=== PATIENT | male | born 1930 | race Two or more races ===

== ENCOUNTER 2016-08-11 07:29 | Inpatient (IN) | payer MEDICARE, OTHER ==
[~2016-08-11] VITALS: Ht 170.2 cm; Wt 81.2 kg
[~2016-08-11 07:29] MED LIST: AMBIEN10 MG ORAL; ASPIRIN81 MG ORAL; BACITRACIN3.5 GM OP; CEPHALEXIN500 MG ORAL; CRESTOR PO; FUROSEMIDE20 M1 ORAL; LOPRESSOR25 M1 ORAL; METOPROLOL TART25 MG ORAL; METRONIDAZOLE500 MG ORAL; NASONEX17 GM NASAL; PROTONIX40 M1 PO; ROCALTROL0.5 MCG ORAL; TERAZOSIN HCL1 MG ORAL; VIT D PO; norvasc PO
[2016-08-11 07:30] VITALS: BP 163/58
[2016-08-11] MEDS ORDERED: Ipratropium 0.02% Inh Soln 2.5ml UD HHN ONE (07:45)
[2016-08-11] MEDS ORDERED: Albuterol ud Inhalation HHN ONE (07:45)
[2016-08-11] MEDS ORDERED: Cefepime 1gm vial ONE (07:50)
[2016-08-11 08:02] LABS: PROTHROMBIN TIME 10.6 SEC (9.30-11.50)
[2016-08-11 08:05] LABS: MAGNESIUM 1.2 mg/dL (1.7-2.5)
[2016-08-11 08:10] LABS: ALANINE AMINOTRANSFERASE 9 U/L (3-41); ALBUMIN/GLOBULIN RATIO 1.2 (1.0-2.7); ANION GAP 16 (5-15); ASPARTATE AMINO TRANSFERASE 18 U/L (5-40); CALCIUM 7.2 mg/dL (8.6-10.2); CARBON DIOXIDE 21 mEQ/L (20-30); CHLORIDE 106 mEQ/L (98-107); CREATININE 5.4 mg/dL (0.7-1.2); HEMOLYSIS 9; SODIUM 143 mEQ/L (135-145); TOTAL PROTEIN 6.2 g/dL (6.6-8.7)
[2016-08-11 08:11] LABS: TROPONIN I < 0.30 ng/mL (<=0.30)
[2016-08-11 08:12] LABS: BASOPHILS % (AUTO) 1.2 % (0.0-2.0); EOSINOPHILS % (AUTO) 0.9 % (0.0-3.0); LYMPHOCYTES % (AUTO) 26.7 % (20.0-45.0); MEAN CORPUSCULAR HEMOGLOBIN 30.4 PG (27.0-31.0); MEAN CORPUSCULAR HGB CONC 30.1 G/DL (32.0-36.0); MEAN CORPUSCULAR VOLUME 101 FL (80-99); MEAN PLATELET VOLUME 8.1 FL (6.5-10.1); MONOCYTES % (AUTO) 10.5 % (1.0-10.0); NEUTROPHILS % (AUTO) 60.7 % (45.0-75.0); PLATELET COUNT 163 K/UL (150-450); RED BLOOD COUNT 2.98 M/UL (4.70-6.10); WHITE BLOOD COUNT 5.6 K/UL (4.8-10.8)
[2016-08-11 08:20] LABS: CKMB 1.7 ng/mL (< 6.7)
[2016-08-11 08:34] LABS: APPEARANCE,URINE CLEAR; KETONES,URINE NEGATIVE (NEGATIVE); LEUKOCYTE ESTERASE ,URINE NEGATIVE (NEGATIVE); NITRITE,URINE NEGATIVE (NEGATIVE); PH,URINE 5 (4.5-8.0); PROTEIN,URINE 3+ (NEGATIVE); UROBILINOGEN,URINE NORMAL MG/DL (0.0-1.0)
[2016-08-11] MEDS ORDERED: AMBIEN10 M1 ORAL (08:40)
[2016-08-11] MEDS ORDERED: PredniSONE 20mg tab ORAL ONE (08:45)
[2016-08-11 08:48] VITALS: BP 158/61
[2016-08-11 08:54] LABS: BACTERIA,URINE OCCASIONAL /HPF; SQUAMOUS EPITHELIAL CELL,UR OCCASIONAL /LPF (NONE/OCC); WBC,URINE 0-2 /HPF (0 - 0)
--- NOTE | 2016-08-11 08:54 | Diagnostic Imaging Report ---
Indications: Shortness of breath Technique: Portable AP chest Findings: Comparison: 04/17/2012 Cardiomegaly, pulmonary vascular redistribution, bilateral interstitial infiltrates, mild right costophrenic angle blunting,. Right upper lobe consolidation and volume loss persist, unchanged. Linear and patchy opacities in the right mid and lower lung persists, decreased. No new abnormality demonstrated. IMPRESSION: Bilateral congestive changes, persistent versus recurrent Superimposed subsegmental atelectasis versus scarring and patchy alveolar opacities right lower lung, decreased. Focal pneumonia not excludable. Persistent appearance of right upper lobe atelectasis, unchanged. However, thoracic CT scan at the time of previous chest radiograph fails to demonstrate corroborating findings. This likely simply represents widening of the right paratracheal soft tissues secondary to enlarged right thyroid lobe and ectatic vasculature both demonstrated on previous CT scan, rendered more prominent by lordotic projection of the image and suboptimal inspiration. Upright PA and lateral chest radiographs with better inspiratory effort and optimal technique recommended for more complete evaluation.
--- NOTE | 2016-08-11 09:20 | Emergency Room Report ---
History of Present Illness General Chief Complaint: Dyspnea/Respdistress Source: Patient Present Illness HPI This patient is accompanied by his . He recently was admitted here to [facility] for an upper GI bleed. He was found to have a peptic ulcer or. He was treated and had stabilized. He is known to have chronic renal disease. He presents today for cough and congestion and generalized weakness. His states that 2 days ago he became congested. She states that he did see his primary care physician and was prescribed codeine. She states that the codeine in combination with the Ambien has also made him weak and forgetful. She states that today he was so weak he could not get up. He does have a history of tobacco use. He continues to smoke one to 2 cigarettes per day. He denies any chest pain or abdominal pain. He denies nausea or vomiting. He was treated for C. difficile colitis as well in the hospital. He did have a bout of diarrhea today. He denies fever or chills. He has no other complaints. Allergies: Coded Allergies: No Known Allergies (Unverified , 04/12/12) Patient History Past Medical History: see triage record, HTN, CAD, COPD, renal disease, other - GI bleed, C.diff colitis Social History: Reports: smoking, Denies: alcohol use, drug use Reviewed Nursing Documentation: PMH: Agreed, PSxH: Agreed Nursing Documentation-PMH Hx Cardiac Problems: No Hx Hypertension: Yes Hx Pacemaker: No Hx Asthma: No Hx COPD: No Hx Diabetes: No Hx Cancer: No Hx Gastrointestinal Problems: No Hx Dialysis: No History Of Psychiatric Problem: No Hx Neurological Problems: No Hx Cerebrovascular Accident: No Hx Seizures: No Review of Systems All Other Systems: negative except mentioned in HPI Physical Exam Vital Signs Date Time Temp Pulse Resp B/P Pulse Ox O2 Delivery O2 Flow Rate FiO2 08/11/16 07:25 98.1 86 18 130/80 95 Nasal Cannula 2.0 08/11/16 07:53 36 Sp02 EP Interpretation: reviewed, abnormal General Appearance: no apparent distress, alert, GCS 15, non-toxic Head: normocephalic, atraumatic Eyes: bilateral eye PERRL, bilateral eye normal inspection ENT: hearing grossly normal, normal pharynx, no angioedema, normal voice Neck: full range of motion, supple/symm/no masses Respiratory: chest non-tender, no respiratory distress, rhonchi, speaking full sentences, wheezing, expiration Cardiovascular #1: regular rate, rhythm, no edema Gastrointestinal: normal bowel sounds, non tender, soft, non-distended, no guarding, no rebound Rectal: deferred Musculoskeletal: back normal, normal range of motion, non-tender Neurologic: alert, oriented x3, responsive, motor strength/tone normal, sensory intact, speech normal Psychiatric: judgement/insight normal, memory normal, mood/affect normal, no suicidal/homicidal ideation Skin: normal color, no rash, warm/dry, well hydrated Medical Decision Making Diagnostic Impression: Primary Impression: Renal failure Additional Impressions: Pneumonia COPD exacerbation Diarrhea Hx of Clostridium difficile infection ER Course This patient presents with several acute medical conditions. He has pneumonia with COPD exacerbation. He was given broad-spectrum antibiotics, breathing treatments and steroids. He was also given aggressive IV fluid resuscitation. He was also found to be in acute renal failure. This could be prerenal given a BUN of 46. He was given IV fluids. Given the patient's age and comorbidities, this patient will be admitted for further treatment of his pneumonia, COPD and further assessment of his renal failure. He is admitted to telemetry. The patient also was found to have bloody diarrhea. His hemoglobin and hematocrit are stable and so I do not suspect an acute upper GI bleed. However, this patient may have recurrence of his C. difficile colitis. A stool C. difficile toxin was sent and is pending. This patient is critically ill. This patient required complex medical decision- making, aggressive intervention, extensive laboratory workup and monitoring. Critical care time: 40 minutes. Labs Test 08/11/16 07:35 08/11/16 08:09 White Blood Count 5.6 K/UL (4.8-10.8) Red Blood Count 2.98 M/UL (4.70-6.10) Hemoglobin 9.1 G/DL (14.2-18.0) Hematocrit 30.2 % (42.0-52.0) Mean Corpuscular Volume 101 FL (80-99) Mean Corpuscular Hemoglobin 30.4 PG (27.0-31.0) Mean Corpuscular Hemoglobin Concent 30.1 G/DL (32.0-36.0) Red Cell Distribution Width 15.0 % (11.6-14.8) Platelet Count 163 K/UL (150-450) Mean Platelet Volume 8.1 FL (6.5-10.1) Neutrophils (%) (Auto) 60.7 % (45.0-75.0) Lymphocytes (%) (Auto) 26.7 % (20.0-45.0) Monocytes (%) (Auto) 10.5 % (1.0-10.0) Eosinophils (%) (Auto) 0.9 % (0.0-3.0) Basophils (%) (Auto) 1.2 % (0.0-2.0) Prothrombin Time 10.6 SEC (9.30-11.50) Prothromb Time International Ratio 1.0 (0.9-1.1) Activated Partial Thromboplast Time 31 SEC (23-33) Sodium Level 143 mEQ/L (135-145) Potassium Level 5.0 mEQ/L (3.4-4.9) Chloride Level 106 mEQ/L (98-107) Carbon Dioxide Level 21 mEQ/L (20-30) Anion Gap 16 (5-15) Blood Urea Nitrogen 46 mg/dL (7-23) Creatinine 5.4 mg/dL (0.7-1.2) Estimat Glomerular Filtration Rate mL/min (>60) Glucose Level 104 mg/dL (74-106) Lactic Acid Level 0.90 mmol/L (0.66-2.22) Calcium Level 7.2 mg/dL (8.6-10.2) Magnesium Level 1.2 mg/dL (1.7-2.5) Total Bilirubin < 0.2 mg/dL (0.0-1.2) Aspartate Amino Transf (AST/SGOT) 18 U/L (5-40) Alanine Aminotransferase (ALT/SGPT) 9 U/L (3-41) Alkaline Phosphatase 63 U/L (40-129) Total Creatine Kinase 112 U/L (38-174) Creatine Kinase MB 1.7 ng/mL (< 6.7) Creatine Kinase MB Relative Index 1.5 Troponin I < 0.30 ng/mL (<=0.30) Total Protein 6.2 g/dL (6.6-8.7) Albumin 3.4 g/dL (3.5-5.2) Globulin 2.8 g/dL Albumin/Globulin Ratio 1.2 (1.0-2.7) Urine Color Pale yellow Urine Appearance Clear Urine pH 5 (4.5-8.0) Urine Specific [place] 1.010 (1.005-1.035) Urine Protein 3+ (NEGATIVE) Urine Glucose (UA) Negative (NEGATIVE) Urine Ketones Negative (NEGATIVE) Urine Occult Blood 2+ (NEGATIVE) Urine Nitrite Negative (NEGATIVE) Urine Bilirubin Negative (NEGATIVE) Urine Urobilinogen Normal MG/DL (0.0-1.0) Urine Leukocyte Esterase Negative (NEGATIVE) Urine RBC 2-4 /HPF (0 - 0) Urine WBC 0-2 /HPF (0 - 0) Urine Squamous Epithelial Cells Occasional /LPF Urine Bacteria Occasional /HPF (NONE) EKG Diagnostic Results Rate: normal Rhythm: NSR ST Segments: no acute changes Other Impression Right bundle-branch block. Unchanged from comparison on 06/08/2016. Rhythm Strip Diag. Results EP Interpretation: yes Rate: 70's Rhythm: NSR, no PVC's, no ectopy Chest X-Ray Diagnostic Results EP Interpretation: No Findings: no pneumothorax, other Number of Views: 1 Other Impression See official report. Many chronic findings. Increase in the right lower lobe opacification. Last Vital Signs Date Time Temp Pulse Resp B/P Pulse Ox O2 Delivery O2 Flow Rate FiO2 08/11/16 08:52 80 36 Nasal Cannula 4.0 36 08/11/16 08:48 98.6 158/61 96 Status: improved Disposition: ADMITTED INPATIENT Condition: Serious Referrals: LULU SHERMAN (PCP) CECE HERNANDEZ D.O. Aug 11, 2016 09:20
[2016-08-11 10:08] LABS: IONIZED CALCIUM 0.96 mmol/L (1.10-1.35)
[2016-08-11] MEDS ORDERED: Ipratropium 0.02% Inh Soln 2.5ml UD HHN SCH (10:45)
[2016-08-11] MEDS ORDERED: Zolpidem 5mg tab ORAL PRN (10:45)
[2016-08-11] MEDS ORDERED: Albuterol ud Inhalation HHN SCH (11:00)
[2016-08-11 11:46] VITALS: BP 137/55
[2016-08-11] MEDS ORDERED: Polysporin Oint 30gm TOPIC PRN ×2 (12:45→15:00)
[2016-08-11] MEDS ORDERED: Bacitracin Oint UD TOPIC ONE (14:00)
[2016-08-11] MEDS ORDERED: Promethazine/Codeine 5ml UD ORAL PRN (15:00)
--- NOTE | 2016-08-11 15:03 | Consultation ---
History of Present Illness General Date patient seen: Aug 11, 2016 Chief Complaint: Dyspnea/Respdistress Referring physician: Power Reason for Consultation: dyspnea Present Illness HPI 86 year old female with hx of CAD, CHF, CKD, He recently was admitted to [facility] for an upper GI bleed. He presented today for cough and congestion and generalized weakness. His states that 2 days ago he became congested. She states that today he was so weak he could not get up. He does have a history of tobacco use. He continues to smoke one to 2 cigarettes per day. He denies any chest pain or abdominal pain. Patient was diagnosed to have bronchitis and pneumonia and CHF and admitted to telemetry for further work up. Patient is awake and c/o cough and dyspnea for a few days, doesn't recall having any fever or chills. Allergies: Coded Allergies: No Known Allergies (Unverified , 04/12/12) Medication History Scheduled Bacitracin (Bacitracin), 1 APPLIC OP BID Calcitriol (Calcitriol), 0.5 MCG ORAL DAILY Metoprolol Tartrate (Metoprolol Tartrate), 25 MG ORAL EVERY 12 HOURS Metoprolol Tartrate* (Metoprolol Tartrate*), 25 MG ORAL EVERY 12 HOURS, ( Reported) Metronidazole* (Flagyl*), 500 MG ORAL EVERY 8 HOURS Mometasone Furoate (Nasonex), 2 SPRAYS NASAL DAILY, (Reported) Pantoprazole* (Protonix*), 40 MG PO EVERY 12 HOURS [Crestor], TAB PO DAILY, (Reported) Scheduled PRN Zolpidem Tartrate* (Ambien*), 10 MG ORAL HS PRN for Insomnia, (Reported) Patient History Healthcare decision maker Resuscitation status Full Code Advanced Directive on File Past Medical/Surgical History Past Medical/Surgical History: (1) C. difficile colitis (2) CKD (chronic kidney disease) (3) Gastric ulcer (4) COPD exacerbation Review of Systems Respiratory: Reports: cough, shortness of breath All Other Systems: negative except mentioned in HPI Physical Exam General Appearance: WD/WN, no apparent distress Lines, tubes and drains: peripheral, central line HEENT: normocephalic, atraumatic Neck: non-tender, normal alignment Respiratory/Chest: chest wall non-tender, lungs clear Cardiovascular/Chest: normal peripheral pulses, normal rate Abdomen: normal bowel sounds, non tender Genitourinary/Rectal: normal genital exam Extremities: normal range of motion Last 24 Hour Vital Signs Date Time Temp Pulse Resp B/P Pulse Ox O2 Delivery O2 Flow Rate FiO2 08/11/16 11:46 98.1 73 22 137/55 93 Nasal Cannula 4.0 08/11/16 11:40 69 20 97 Nasal Cannula 4.0 36 08/11/16 11:30 85 20 93 Nasal Cannula 4.0 36 08/11/16 10:04 75 29 155/48 95 Nasal Cannula 4.0 08/11/16 08:52 80 36 Nasal Cannula 4.0 36 08/11/16 08:48 98.6 80 36 158/61 96 Nasal Cannula 4.0 36 08/11/16 08:11 78 24 100 Nasal Cannula 4.0 36 08/11/16 07:53 81 21 95 Nasal Cannula 4.0 36 08/11/16 07:53 81 21 Nasal Cannula 4.0 36 08/11/16 07:30 98.3 81 22 163/58 99 Nasal Cannula 4.0 08/11/16 07:30 81 22 Nasal Cannula 4.0 08/11/16 07:25 98.1 86 18 130/80 95 Nasal Cannula 2.0 Laboratory Tests Test 08/11/16 07:35 08/11/16 08:09 White Blood Count 5.6 K/UL (4.8-10.8) Red Blood Count 2.98 M/UL (4.70-6.10) L Hemoglobin 9.1 G/DL (14.2-18.0) L Hematocrit 30.2 % (42.0-52.0) L Mean Corpuscular Volume 101 FL (80-99) H Mean Corpuscular Hemoglobin 30.4 PG (27.0-31.0) Mean Corpuscular Hemoglobin Concent 30.1 G/DL (32.0-36.0) L Red Cell Distribution Width 15.0 % (11.6-14.8) H Platelet Count 163 K/UL (150-450) Mean Platelet Volume 8.1 FL (6.5-10.1) Neutrophils (%) (Auto) 60.7 % (45.0-75.0) Lymphocytes (%) (Auto) 26.7 % (20.0-45.0) Monocytes (%) (Auto) 10.5 % (1.0-10.0) H Eosinophils (%) (Auto) 0.9 % (0.0-3.0) Basophils (%) (Auto) 1.2 % (0.0-2.0) Prothrombin Time 10.6 SEC (9.30-11.50) Prothromb Time International Ratio 1.0 (0.9-1.1) Activated Partial Thromboplast Time 31 SEC (23-33) Sodium Level 143 mEQ/L (135-145) Potassium Level 5.0 mEQ/L (3.4-4.9) H Chloride Level 106 mEQ/L (98-107) Carbon Dioxide Level 21 mEQ/L (20-30) Anion Gap 16 (5-15) H Blood Urea Nitrogen 46 mg/dL (7-23) H Creatinine 5.4 mg/dL (0.7-1.2) H Estimat Glomerular Filtration Rate mL/min (>60) Glucose Level 104 mg/dL (74-106) Lactic Acid Level 0.90 mmol/L (0.66-2.22) Calcium Level 7.2 mg/dL (8.6-10.2) L Ionized Calcium (Measured) 0.96 mmol/L (1.10-1.35) L Magnesium Level 1.2 mg/dL (1.7-2.5) L Total Bilirubin < 0.2 mg/dL (0.0-1.2) Aspartate Amino Transf (AST/SGOT) 18 U/L (5-40) Alanine Aminotransferase (ALT/SGPT) 9 U/L (3-41) Alkaline Phosphatase 63 U/L (40-129) Total Creatine Kinase 112 U/L (38-174) Creatine Kinase MB 1.7 ng/mL (< 6.7) Creatine Kinase MB Relative Index 1.5 Troponin I < 0.30 ng/mL (<=0.30) Total Protein 6.2 g/dL (6.6-8.7) L Albumin 3.4 g/dL (3.5-5.2) L Globulin 2.8 g/dL Albumin/Globulin Ratio 1.2 (1.0-2.7) Urine Color Pale yellow Urine Appearance Clear Urine pH 5 (4.5-8.0) Urine Specific [place] 1.010 (1.005-1.035) Urine Protein 3+ (NEGATIVE) H Urine Glucose (UA) Negative (NEGATIVE) Urine Ketones Negative (NEGATIVE) Urine Occult Blood 2+ (NEGATIVE) H Urine Nitrite Negative (NEGATIVE) Urine Bilirubin Negative (NEGATIVE) Urine Urobilinogen Normal MG/DL (0.0-1.0) Urine Leukocyte Esterase Negative (NEGATIVE) Urine RBC 2-4 /HPF (0 - 0) H Urine WBC 0-2 /HPF (0 - 0) Urine Squamous Epithelial Cells Occasional /LPF Urine Bacteria Occasional /HPF (NONE) Microbiology Date/Time Source Procedure Growth Status 08/11/16 08:09 Stool Clostridium difficile Toxin Assay - Final Complete Height (Feet): 5 Height (Inches): 7.00 Weight (Pounds): 179 Medications Current Medications Medications (Trade) Dose Ordered Sig/Bereket Route PRN Reason Start Time Stop Time Status Last Admin Dose Admin Albuterol Sulfate (Proventil) 2.5 mg Q4HRT HHN 08/11/16 11:00 08/16/16 10:59 08/11/16 11:30 Atorvastatin Calcium (Lipitor) 20 mg BEDTIME ORAL 08/11/16 21:00 09/10/16 20:59 Bacitracin/ Polymyxin B Sulfate (Polysporin Oint) 1 applic BIDPRN PRN TOPIC for itchiness 08/11/16 15:00 09/10/16 14:59 Calcitriol (Rocaltrol) 0.5 mcg DAILY ORAL 08/12/16 09:00 09/11/16 08:59 Cefepime HCl/ Dextrose (Maxipime/D5W 50ml) 50 ml @ 100 mls/hr EVERY 12 HOURS IVPB 08/11/16 21:00 08/18/16 20:59 Clonidine HCl (Catapres) 0.1 mg EVERY 8 HOURS PRN ORAL For High Blood Pressure 08/11/16 10:45 09/10/16 10:44 Fluticasone Propionate (Flonase) 1 spray TWICE A DAY NASAL 08/11/16 18:00 09/10/16 17:59 Ipratropium [place] (Atrovent) 500 mcg Q4H HHN 08/11/16 10:45 08/16/16 10:44 08/11/16 11:30 Levofloxacin (Levaquin) 50 ml @ 50 mls/hr DAILY IVPB 08/11/16 10:45 08/18/16 10:44 08/11/16 12:56 Metoprolol Tartrate (Lopressor) 25 mg EVERY 12 HOURS ORAL 08/11/16 21:00 09/10/16 20:59 Pantoprazole 40 mg 40 mg EVERY 12 HOURS ORAL 08/11/16 21:00 09/10/16 20:59 Zolpidem Tartrate (Ambien) 10 mg HSPRN PRN ORAL Insomnia 08/11/16 10:45 09/10/16 10:44 Assessment/Plan Problem List: (1) Pneumonia ICD Codes: J18.9 - Pneumonia, unspecified organism SNOMED: 759911721, 630451026 Qualifiers: (2) COPD exacerbation ICD Codes: J44.1 - Chronic obstructive pulmonary disease with (acute) exacerbation SNOMED: 725942788, 925541463 (3) Hx of Clostridium difficile infection ICD Codes: Z86.19 - Personal history of other infectious and parasitic diseases SNOMED: 017216644 (4) Anemia ICD Codes: D64.9 - Anemia SNOMED: 411474402 Assessment/Plan respiratory treatment IV antibiotics check sputum chest pt diuretics aspiration precaution MAURY CONTI Aug 11, 2016 15:03
[2016-08-11 16:13] VITALS: BP 134/55
--- NOTE | 2016-08-11 16:35 | General Progress Note ---
Assessment/Plan Status: stable Assessment/Plan 1. Pneumonia - cont IV levaquin 250 mg daily. cont. breathing txt 2. COPD - cont breathing txt. Dr raines is following the patient as well. 3. CKD - will consult Dr Gonzalez. 4. H/O GI bleeding - stable now. Stool hemocult negative. 5. H/O Gastric Ulcer - stable. 6. H/o Sarcoidosis Subjective Date patient seen: Aug 11, 2016 Time patient seen: 04:00 Constitutional: Reports: weakness HEENT: Reports: no symptoms Cardiovascular: Reports: no symptoms Respiratory: Reports: cough Gastrointestinal/Abdominal: Reports: no symptoms Genitourinary: Reports: no symptoms Neurologic/Psychiatric: Reports: no symptoms Endocrine: Reports: no symptoms Hematologic/Lymphatic: Reports: no symptoms Allergies: Coded Allergies: No Known Allergies (Unverified , 04/12/12) Subjective Pt c/o coughing and slightly lethargic today. he took phenergan with codeine and sleeping pill yesterday and he fell at home. He then was brought into ER at [place]. Now, he has slight coughing. Objective Last 24 Hour Vital Signs Date Time Temp Pulse Resp B/P Pulse Ox O2 Delivery O2 Flow Rate FiO2 08/11/16 16:13 98.4 67 18 134/55 95 Nasal Cannula 4.0 08/11/16 11:46 98.1 73 22 137/55 93 Nasal Cannula 4.0 08/11/16 11:40 69 20 97 Nasal Cannula 4.0 36 08/11/16 11:30 85 20 93 Nasal Cannula 4.0 36 08/11/16 10:04 75 29 155/48 95 Nasal Cannula 4.0 08/11/16 08:52 80 36 Nasal Cannula 4.0 36 08/11/16 08:48 98.6 80 36 158/61 96 Nasal Cannula 4.0 36 08/11/16 08:11 78 24 100 Nasal Cannula 4.0 36 08/11/16 07:53 81 21 95 Nasal Cannula 4.0 36 08/11/16 07:53 81 21 Nasal Cannula 4.0 36 08/11/16 07:30 98.3 81 22 163/58 99 Nasal Cannula 4.0 08/11/16 07:30 81 22 Nasal Cannula 4.0 08/11/16 07:25 98.1 86 18 130/80 95 Nasal Cannula 2.0 Laboratory Tests 08/11/16 07:35: White Blood Count 5.6, Red Blood Count 2.98L, Hemoglobin 9.1L, Hematocrit 30.2L , Mean Corpuscular Volume 101H, Mean Corpuscular Hemoglobin 30.4, Mean Corpuscular Hemoglobin Concent 30.1L, Red Cell Distribution Width 15.0H, Platelet Count 163, Mean Platelet Volume 8.1, Neutrophils (%) (Auto) 60.7, Lymphocytes (%) (Auto) 26.7, Monocytes (%) (Auto) 10.5H, Eosinophils (%) (Auto) 0.9, Basophils (%) (Auto) 1.2, Prothrombin Time 10.6, Prothromb Time International Ratio 1.0, Activated Partial Thromboplast Time 31, Sodium Level 143, Potassium Level 5.0H, Chloride Level 106, Carbon Dioxide Level 21, Anion Gap 16H, Blood Urea Nitrogen 46H, Creatinine 5.4H, Estimat Glomerular Filtration Rate , Glucose Level 104, Lactic Acid Level 0.90, Calcium Level 7.2L , Ionized Calcium (Measured) 0.96L, Magnesium Level 1.2L, Total Bilirubin < 0.2 , Aspartate Amino Transf (AST/SGOT) 18, Alanine Aminotransferase (ALT/SGPT) 9, Alkaline Phosphatase 63, Total Creatine Kinase 112, Creatine Kinase MB 1.7, Creatine Kinase MB Relative Index 1.5, Troponin I < 0.30, Total Protein 6.2L, Albumin 3.4L, Globulin 2.8, Albumin/Globulin Ratio 1.2 08/11/16 08:09: Urine Color Pale yellow, Urine Appearance Clear, Urine pH 5, Urine Specific [place] 1.010, Urine Protein 3+H, Urine Glucose (UA) Negative, Urine Ketones Negative, Urine Occult Blood 2+H, Urine Nitrite Negative, Urine Bilirubin Negative, Urine Urobilinogen Normal, Urine Leukocyte Esterase Negative, Urine RBC 2-4H, Urine WBC 0-2, Urine Squamous Epithelial Cells Occasional, Urine Bacteria Occasional Height (Feet): 5 Height (Inches): 7.00 Weight (Pounds): 179 General Appearance: no apparent distress, lethargic EENT: normal ENT inspection Neck: non-tender, normal alignment, supple Cardiovascular: normal rate, regular rhythm Respiratory/Chest: chest wall non-tender, lungs clear, normal breath sounds Abdomen: normal bowel sounds, non tender, soft, no organomegaly Extremities: normal range of motion, non-tender Edema: no edema noted Arm (L), no edema noted Arm (R), no edema noted Leg (L), no edema noted Leg (R), no edema noted Pedal (L), no edema noted Pedal (R), no edema noted Generalized Neurologic: no motor/sensory deficits, alert, responsive Skin: warm/dry Lymphatic: normal anterior cervical (L), normal anterior cervical (R), normal axillary (L), normal axillary (R), normal inguinal (L), normal inguinal (R), normal other, normal posterior cervical (L), normal posterior cervical (R), normal submandibular (L), normal submandibular (R), normal supraclavicular (L), normal supraclavicular (R) LULU SHERMAN Aug 11, 2016 16:35
[2016-08-11] MEDS: Flonase Nasal Inhaler 16gm NASAL SCH (18:00)
[2016-08-11] MEDS: DuoNeb 0.5-3(2.5)mg/3ml neb HHN SCH (19:23)
[2016-08-11 20:00] VITALS: BP 143/62
[2016-08-11] MEDS: Atorvastatin 20mg tab ORAL SCH (20:23)
[2016-08-11] MEDS: Theophylline ER 100mg ORAL SCH (20:23)
[2016-08-11] MEDS: Metoprolol 25mg tab ORAL SCH (20:24)
[2016-08-12 00:50] VITALS: BP 129/50
[2016-08-12] MEDS: DuoNeb 0.5-3(2.5)mg/3ml neb HHN SCH ×4 (01:25→19:15)
--- NOTE | 2016-08-12 02:47 | History and Physical Report ---
DATE OF ADMISSION: 08/11/2016 CHIEF COMPLAINT: Cough and shortness of breath. HISTORY OF PRESENT ILLNESS: This is an 86-year-old male with history of coronary artery disease, CHF, and chronic kidney disease, who was brought in by his for complaint of shortness of breath, drowsiness, and increased congestion for the past two days. The patient fell this morning at home according to his and then she decided to bring him into the hospital for evaluation. The patient received oral antibiotic, Augmentin as an outpatient for acute bronchitis by another doctor. However, he did not respond well to the treatment and decided to come to the hospital. The patient denies any fever or chills, but has slight shortness of breath. No nausea or vomiting. No diarrhea. No abdominal pain noted. PAST MEDICAL HISTORY: Includes history of GI bleed, history of C. diff colitis, chronic kidney disease, and gastric ulcer, history of Sarcoidosis ALLERGIES: No known drug allergies. MEDICATIONS: The patient is taking metoprolol tartrate 25 mg q.12 h., Protonix 40 mg q.12 h., calcitriol 0.5 mcg daily, and Crestor 5 mg one at bedtime plus Ambien 10 mg at bedtime. SOCIAL HISTORY: History of smoking for over 30 years. The patient is drinking heavily alcohol, however, quit alcohol intake for the past seven months. No history of IV drug abuse. FAMILY HISTORY: Noncontributory. REVIEW OF SYSTEMS: Everything is negative except for history of present illness. PHYSICAL EXAMINATION: VITAL SIGNS: Temperature is 98.6 degrees, pulse 80, respirations 24 to 26, blood pressure 168/61, and pulse oximetry 96% on three liters nasal cannula. GENERAL: No acute distress. The patient appears his stated age. HEENT: Normocephalic and normochromic. Extraocular muscles are intact. Throat is clear. LUNGS: Positive rhonchi bilaterally with congestion. CARDIOVASCULAR: Normal S1 and S2. No murmur. No gallop. Regular rate and rhythm. ABDOMEN: Soft, nontender, and nondistended. Positive bowel sounds. EXTREMITIES: No edema, cyanosis, or clubbing. NEUROLOGIC: No gross motor or sensory deficits. SKIN: No rash. LABORATORY AND DIAGNOSTIC DATA: WBC is 5.6, hemoglobin 9.1, hematocrit 30.2, platelet count 163,000; and neutrophils 60.7. PT is 10.6, INR 1.0, and PTT 31. Sodium is 143, potassium 5, chloride 106, bicarbonate 21, BUN 46, creatinine 5.4, and glucose 104. Lactic acid is 0.9. Calcium is 7.2. Ionized calcium is 0.96. Magnesium is 1.2. AST is 18, ALT 9, and alkaline phosphatase 63. Total creatine kinase is 112. Troponin is less than 0.3. Total protein is 6.2 and albumin 3.4. Chest x-ray shows superimposed subsegmental atelectasis versus scarring and patchy alveolar opacity of the right lower lung that is slightly decreased from prior. Persistent appearance of the right upper lobe and possible widening of the right parenchymal soft tissue, secondary to large . ASSESSMENT AND PLAN: 1. Pneumonia. Continue IV cefepime 1 g b.i.d. q.12 h. 2. Chronic obstructive pulmonary disease. Continue breathing treatment every four hours. 3. Chronic kidney disease - will have Dr hooker see the patient. 4. History of gastrointestinal bleed 5. History of gastric ulcer 6. history of sarcoidosis The patient will be admitted for a minimum of two night stay for the treatment of pneumonia. Bacilio Steve M.D. DR: Aparna JOB#: [id number] CC: SYLVESTER
[2016-08-12 04:19] VITALS: BP 138/59
[2016-08-12 06:10] LABS: MEAN CORPUSCULAR HGB CONC 29.8 G/DL (32.0-36.0); MEAN CORPUSCULAR VOLUME 101 FL (80-99); MEAN PLATELET VOLUME 7.4 FL (6.5-10.1); PLATELET COUNT 127 K/UL (150-450); RED BLOOD COUNT 2.55 M/UL (4.70-6.10); RED CELL DISTRIBUTION WIDTH 15.2 % (11.6-14.8); WHITE BLOOD COUNT 5.9 K/UL (4.8-10.8)
[2016-08-12 06:25] LABS: ANION GAP 14 (5-15); CALCIUM 6.6 mg/dL (8.6-10.2); CARBON DIOXIDE 18 mEQ/L (20-30); CHLORIDE 112 mEQ/L (98-107); CREATININE 5.1 mg/dL (0.7-1.2); HEMOLYSIS 2; POTASSIUM 5.7 mEQ/L (3.4-4.9); SODIUM 144 mEQ/L (135-145)
[2016-08-12 07:51] VITALS: BP 113/49
[2016-08-12] MEDS: Theophylline ER 100mg ORAL SCH ×2 (08:43→21:37)
[2016-08-12] MEDS: Metoprolol 25mg tab ORAL SCH ×2 (08:44→21:37)
[2016-08-12] MEDS: Calcitriol 0.5mcg Cap ORAL SCH (08:44)
[2016-08-12] MEDS: Flonase Nasal Inhaler 16gm NASAL SCH ×2 (10:38→19:22)
[2016-08-12 11:13] LABS: BAND NEUTROPHILS % (MANUAL) 1 % (0-8); LYMPHOCYTES % (MANUAL) 18 % (20-45); NEUTROPHILS % (MANUAL) 71 % (45-75); TOTAL CELLS COUNTED 100
[2016-08-12 11:14] LABS: BASOPHILS % (MANUAL) 0 % (0-2); EOSINOPHILS % (MANUAL) 0 % (0-3); PLATELET ESTIMATE DECREASED; PLATELET MORPHOLOGY NORMAL
[2016-08-12 11:15] LABS: ANISOCYTOSIS 1+
[2016-08-12 11:16] LABS: HYPOCHROMASIA 1+; MACROCYTES 1+
[2016-08-12 11:20] VITALS: BP 133/55
--- NOTE | 2016-08-12 13:11 | Pulmonology Progress Note ---
Assessment/Plan Problems: (1) Pneumonia (2) COPD exacerbation (3) Hx of Clostridium difficile infection (4) Anemia Assessment/Plan improving respiratory treatment IV antibiotics check sputum chest pt diuretics aspiration precaution Lasix IV times one kayexalate renal work up Subjective ROS Limited/Unobtainable: No Interval Events: feeling better, no SOB Constitutional: Reports: no symptoms Allergies: Coded Allergies: No Known Allergies (Unverified , 04/12/12) Objective Last 24 Hour Vital Signs Date Time Temp Pulse Resp B/P Pulse Ox O2 Delivery O2 Flow Rate FiO2 08/12/16 11:20 96.8 64 20 133/55 95 Nasal Cannula 4.0 08/12/16 08:44 60 113/49 08/12/16 08:00 65 08/12/16 07:51 97.0 60 20 113/49 97 Nasal Cannula 4.0 08/12/16 07:00 Nasal Cannula 4.0 36 08/12/16 07:00 67 16 96 Nasal Cannula 4.0 36 08/12/16 07:00 96 Nasal Cannula 4.0 36 08/12/16 07:00 Nasal Cannula 4.0 36 08/12/16 04:19 97.3 67 20 138/59 96 Nasal Cannula 4.0 08/12/16 04:00 64 08/12/16 01:33 60 20 95 Nasal Cannula 4.0 36 08/12/16 01:25 60 20 93 Nasal Cannula 4.0 36 08/12/16 00:50 97.6 65 21 129/50 99 Nasal Cannula 4.0 08/12/16 00:00 58 08/11/16 20:24 70 143/62 08/11/16 20:00 69 08/11/16 20:00 98.4 70 19 143/62 95 Nasal Cannula 4.0 08/11/16 19:31 75 18 96 Nasal Cannula 4.0 36 08/11/16 19:26 94 Nasal Cannula 4.0 36 08/11/16 19:26 Nasal Cannula 4.0 36 08/11/16 19:23 67 18 92 Nasal Cannula 4.0 36 08/11/16 16:13 98.4 67 18 134/55 95 Nasal Cannula 4.0 08/11/16 16:00 65 Intake and Output 08/11/16 08/12/16 19:00 07:00 Intake Total 2720 ml 460 ml Balance 2720 ml 460 ml Intake Oral 220 ml 360 ml IV Total 2500 ml 100 ml # Voids 2 # Bowel Movements 1 General Appearance: WD/WN HEENT: normocephalic, anicteric Respiratory/Chest: chest wall non-tender, lungs clear Cardiovascular: normal peripheral pulses, normal rate Abdomen: normal bowel sounds, soft, non tender Genitourinary: normal external genitalia Extremities: no clubbing Skin: no ulcers 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 Lymphatic: no neck adenopathy Microbiology Date/Time Source Procedure Growth Status 08/11/16 20:30 Sputum Gram Stain - Final Resulted 08/11/16 20:30 Sputum Sputum Culture Pending Resulted 08/11/16 08:09 Stool Clostridium difficile Toxin Assay - Final Complete Laboratory Tests 08/12/16 04:45: White Blood Count 5.9, Red Blood Count 2.55L, Hemoglobin 7.7L, Hematocrit 25.7L , Mean Corpuscular Volume 101H, Mean Corpuscular Hemoglobin 30.0, Mean Corpuscular Hemoglobin Concent 29.8L, Red Cell Distribution Width 15.2H, Platelet Count 127L, Mean Platelet Volume 7.4, Neutrophils (%) (Auto) , Lymphocytes (%) (Auto) , Monocytes (%) (Auto) , Eosinophils (%) (Auto) , Basophils (%) (Auto) , Differential Total Cells Counted 100, Neutrophils % ( Manual) 71, Lymphocytes % (Manual) 18L, Monocytes % (Manual) 10, Eosinophils % ( Manual) 0, Basophils % (Manual) 0, Band Neutrophils 1, Platelet Estimate DecreasedL, Platelet Morphology Normal, Hypochromasia 1+, Anisocytosis 1+, Macrocytosis 1+, Sodium Level 144, Potassium Level 5.7H, Chloride Level 112H, Carbon Dioxide Level 18L, Anion Gap 14, Blood Urea Nitrogen 49H, Creatinine 5.1H , Estimat Glomerular Filtration Rate , Glucose Level 136H, Calcium Level 6.6L Current Medications Medications (Trade) Dose Ordered Sig/Bereket Route PRN Reason Start Time Stop Time Status Last Admin Dose Admin Albuterol/ Ipratropium (DuoNeb 0.5-3(2.5)mg/3ml) 3 ml Q6HRT HHN 08/11/16 19:00 08/16/16 18:59 08/12/16 10:21 Atorvastatin Calcium (Lipitor) 20 mg BEDTIME ORAL 08/11/16 21:00 09/10/16 20:59 08/11/16 20:23 Bacitracin/ Polymyxin B Sulfate (Polysporin Oint) 1 applic BIDPRN PRN TOPIC for itchiness 08/11/16 15:00 09/10/16 14:59 Calcitriol (Rocaltrol) 0.5 mcg DAILY ORAL 08/12/16 09:00 09/11/16 08:59 08/12/16 08:44 Cefepime HCl/ Dextrose (Maxipime/D5W 50ml) 50 ml @ 100 mls/hr Q24H IVPB 08/12/16 21:00 08/19/16 20:59 Clonidine HCl (Catapres) 0.1 mg EVERY 8 HOURS PRN ORAL For High Blood Pressure 08/11/16 10:45 09/10/16 10:44 Fluticasone Propionate (Flonase) 1 spray TWICE A DAY NASAL 08/11/16 18:00 09/10/16 17:59 08/12/16 10:38 Levofloxacin (Levaquin) 50 ml @ 50 mls/hr DAILY IVPB 08/11/16 10:45 08/18/16 10:44 08/12/16 08:46 Metoprolol Tartrate (Lopressor) 25 mg EVERY 12 HOURS ORAL 08/11/16 21:00 09/10/16 20:59 08/12/16 08:44 Pantoprazole (Protonix) 40 mg EVERY 12 HOURS ORAL 08/11/16 21:00 09/10/16 20:59 08/12/16 08:43 Theophylline 100 mg 100 mg EVERY 12 HOURS ORAL 08/11/16 21:00 09/10/16 20:59 08/12/16 08:43 Zolpidem Tartrate (Ambien) 10 mg HSPRN PRN ORAL Insomnia 08/11/16 10:45 09/10/16 10:44 MAURY CONTI Aug 12, 2016 13:11
[2016-08-12] MEDS ORDERED: Sodium Polystyrene Sulfonate 15gm Powder ORAL ONE (13:40)
[2016-08-12 14:10] LABS: PATH BLOOD SMEAR/OMC SENT TO PATHOLOGIST
[2016-08-12 15:01] LABS: ERYTHROCYTE SEDIMENTATION RATE 60 MM/HR (0-30)
--- NOTE | 2016-08-12 15:03 | Consultation ---
Consult Note Assessment/Plan Renal consult dictated # [id number] CHRISTINA DELUNA Aug 12, 2016 15:03
[2016-08-12] MEDS ORDERED: Tubing IV Secondary IV ONE (15:17)
[2016-08-12] MEDS ORDERED: NS 275ml ONE (15:17)
[2016-08-12 15:23] LABS: ALANINE AMINOTRANSFERASE 7 U/L (3-41); ALBUMIN/GLOBULIN RATIO 1.1 (1.0-2.7); ANION GAP 19 (5-15); ASPARTATE AMINO TRANSFERASE 15 U/L (5-40); CARBON DIOXIDE 16 mEQ/L (20-30); CHLORIDE 107 mEQ/L (98-107); CREATININE 5.2 mg/dL (0.7-1.2); HEMOLYSIS 4; MAGNESIUM 1.3 mg/dL (1.7-2.5); POTASSIUM 5.5 mEQ/L (3.4-4.9); SODIUM 142 mEQ/L (135-145); TOTAL PROTEIN 5.2 g/dL (6.6-8.7); URIC ACID 5.2 mg/dL (3.0-7.5)
[2016-08-12 15:29] LABS: CORTISOL 11.1 ug/dL; FREE T3 1.3 pg/mL (2.3-4.2); THYROID STIMULATING HORMONE 0.695 uIU/mL (0.300-4.500)
[2016-08-12 16:00] VITALS: BP 147/56
[2016-08-12 16:03] LABS: HEMOLYSIS 25; IRON 15 ug/dL (59-158); LACTATE DEHYDROGENASE 263 U/L (135-230); TOTAL IRON BINDING CAPACITY 193 ug/dL (250-400)
--- NOTE | 2016-08-12 16:21 | General Progress Note ---
Assessment/Plan Status: stable Assessment/Plan 1. Pneumonia - improved. cont IV cefepime 1 gm q 12 hrs. cont. breathing txt. 2. COPD - cont breathing txt. Dr raines is following the patient as well. 3. CKD - Dr Gonzalez is following the patient 4. Hyperkalemia - katexakate will be started. 5. H/O GI bleeding - stable now. Stool hemocult negative. 6. H/O Gastric Ulcer - stable. 7. H/o Sarcoidosis 8. Anemia - monitor H/H, may need procrit. will discuss with Dr Gonzalez. Subjective Date patient seen: Aug 12, 2016 Time patient seen: 09:00 Constitutional: Reports: weakness HEENT: Reports: no symptoms Cardiovascular: Reports: no symptoms Respiratory: Reports: cough Gastrointestinal/Abdominal: Reports: no symptoms Genitourinary: Reports: no symptoms Neurologic/Psychiatric: Reports: no symptoms Endocrine: Reports: no symptoms Hematologic/Lymphatic: Reports: no symptoms Allergies: Coded Allergies: No Known Allergies (Unverified , 04/12/12) Subjective Pt's coughing has improved. He is doing better today. His H/H has decreased but His stool hemocult has been negative x one. Afebrile. No sob or chest pain. no Nausea or vomiting. Objective Last 24 Hour Vital Signs Date Time Temp Pulse Resp B/P Pulse Ox O2 Delivery O2 Flow Rate FiO2 08/12/16 13:44 63 18 96 Nasal Cannula 4.0 36 08/12/16 13:33 36 08/12/16 13:33 64 17 95 Nasal Cannula 4.0 36 08/12/16 11:20 96.8 64 20 133/55 95 Nasal Cannula 4.0 08/12/16 08:44 60 113/49 08/12/16 08:00 65 08/12/16 07:51 97.0 60 20 113/49 97 Nasal Cannula 4.0 08/12/16 07:00 Nasal Cannula 4.0 36 08/12/16 07:00 67 16 96 Nasal Cannula 4.0 36 08/12/16 07:00 96 Nasal Cannula 4.0 36 08/12/16 07:00 Nasal Cannula 4.0 36 08/12/16 04:19 97.3 67 20 138/59 96 Nasal Cannula 4.0 08/12/16 04:00 64 08/12/16 01:33 60 20 95 Nasal Cannula 4.0 36 08/12/16 01:25 60 20 93 Nasal Cannula 4.0 36 08/12/16 00:50 97.6 65 21 129/50 99 Nasal Cannula 4.0 08/12/16 00:00 58 08/11/16 20:24 70 143/62 08/11/16 20:00 69 08/11/16 20:00 98.4 70 19 143/62 95 Nasal Cannula 4.0 08/11/16 19:31 75 18 96 Nasal Cannula 4.0 36 08/11/16 19:26 94 Nasal Cannula 4.0 36 08/11/16 19:26 Nasal Cannula 4.0 36 08/11/16 19:23 67 18 92 Nasal Cannula 4.0 36 08/11/16 16:13 98.4 67 18 134/55 95 Nasal Cannula 4.0 Intake and Output 08/11/16 08/12/16 19:00 07:00 Intake Total 2720 ml 460 ml Balance 2720 ml 460 ml Intake Oral 220 ml 360 ml IV Total 2500 ml 100 ml # Voids 2 # Bowel Movements 1 Laboratory Tests 08/12/16 04:45: White Blood Count 5.9, Red Blood Count 2.55L, Hemoglobin 7.7L, Hematocrit 25.7L , Mean Corpuscular Volume 101H, Mean Corpuscular Hemoglobin 30.0, Mean Corpuscular Hemoglobin Concent 29.8L, Red Cell Distribution Width 15.2H, Platelet Count 127L, Mean Platelet Volume 7.4, Neutrophils (%) (Auto) , Lymphocytes (%) (Auto) , Monocytes (%) (Auto) , Eosinophils (%) (Auto) , Basophils (%) (Auto) , Differential Total Cells Counted 100, Neutrophils % ( Manual) 71, Lymphocytes % (Manual) 18L, Monocytes % (Manual) 10, Eosinophils % ( Manual) 0, Basophils % (Manual) 0, Band Neutrophils 1, Platelet Estimate DecreasedL, Platelet Morphology Normal, Hypochromasia 1+, Anisocytosis 1+, Macrocytosis 1+, Sodium Level 144, Potassium Level 5.7H, Chloride Level 112H, Carbon Dioxide Level 18L, Anion Gap 14, Blood Urea Nitrogen 49H, Creatinine 5.1H , Estimat Glomerular Filtration Rate , Glucose Level 136H, Calcium Level 6.6L 08/12/16 05:30: Erythrocyte Sedimentation Rate 60H, Reticulocyte Count 1.0 08/12/16 13:30: Sodium Level 142, Potassium Level 5.5H, Chloride Level 107, Carbon Dioxide Level 16L, Anion Gap 19H, Blood Urea Nitrogen 49H, Creatinine 5.2H, Estimat Glomerular Filtration Rate , Glucose Level 129H, Calcium Level 7.0L, Osmolality [Pending], Uric Acid 5.2, Magnesium Level 1.3L, Iron Level 15L, Total Iron Binding Capacity 193L, Percent Iron Saturation 8L, Unsaturated Iron Binding 178 , Total Bilirubin < 0.2, Aspartate Amino Transf (AST/SGOT) 15, Alanine Aminotransferase (ALT/SGPT) 7, Alkaline Phosphatase 49, Lactate Dehydrogenase 263H, Total Creatine Kinase 151, Total Protein 5.2L, Albumin 2.8L, Globulin 2.4 , Albumin/Globulin Ratio 1.1, Carcinoembryonic Antigen 8.4H, Vitamin B12 Level 655, Folate [Pending], Thyroid Stimulating Hormone (TSH) 0.695, Free Thyroxine 0.83L, Free Triiodothyronine 1.3L, Cortisol 11.1 08/12/16 15:20: Prothrombin Time [Pending], Prothromb Time International Ratio [Pending], Activated Partial Thromboplast Time [Pending] Height (Feet): 5 Height (Inches): 7.00 Weight (Pounds): 179 General Appearance: no apparent distress - f, alert Neck: non-tender, supple Cardiovascular: normal peripheral pulses, normal rate, regular rhythm Respiratory/Chest: normal breath sounds, no respiratory distress Abdomen: normal bowel sounds, non tender, soft Extremities: non-tender Edema: no edema noted Arm (L), no edema noted Arm (R), no edema noted Leg (L), no edema noted Leg (R), no edema noted Pedal (L), no edema noted Pedal (R), no edema noted Generalized Neurologic: alert, oriented x 3, responsive Skin: warm/dry Lymphatic: normal anterior cervical (L), normal anterior cervical (R), normal axillary (L), normal axillary (R), normal inguinal (L), normal inguinal (R), normal other, normal posterior cervical (L), normal posterior cervical (R), normal submandibular (L), normal submandibular (R), normal supraclavicular (L), normal supraclavicular (R) LULU SHERMAN Aug 12, 2016 16:21
[2016-08-12 16:42] LABS: INR 1.1 (0.9-1.1)
[2016-08-12] MEDS: Tums 500mg ORAL SCH (18:25)
[2016-08-12 20:00] VITALS: BP 162/65
[2016-08-12] MEDS ORDERED: Epogen (for ESRD on dialysis) SUBQ SCH (21:00)
[2016-08-12] MEDS: Atorvastatin 20mg tab ORAL SCH (21:36)
[2016-08-13 00:07] VITALS: BP 158/61
[2016-08-13] MEDS: DuoNeb 0.5-3(2.5)mg/3ml neb HHN SCH ×4 (00:31→19:42)
[2016-08-13 01:41] LABS: APPEARANCE,URINE CLEAR; KETONES,URINE NEGATIVE (NEGATIVE); LEUKOCYTE ESTERASE ,URINE NEGATIVE (NEGATIVE); NITRITE,URINE NEGATIVE (NEGATIVE); PH,URINE 5 (4.5-8.0); PROTEIN,URINE 3+ (NEGATIVE); UROBILINOGEN,URINE NORMAL MG/DL (0.0-1.0)
[2016-08-13 01:54] LABS: RBC,URINE 0-2 /HPF (0 - 0); SQUAMOUS EPITHELIAL CELL,UR FEW /LPF (NONE/OCC); WBC,URINE 0-2 /HPF (0 - 0)
[2016-08-13 01:55] LABS: BACTERIA,URINE FEW /HPF
[2016-08-13] MEDS: Diltiazem 25mg/5ml IV PRN ×2 (02:39→04:06)
[2016-08-13 04:11] VITALS: BP 141/77
[2016-08-13 07:28] LABS: ALANINE AMINOTRANSFERASE 8 U/L (3-41); ALBUMIN/GLOBULIN RATIO 1.2 (1.0-2.7); ANION GAP 19 (5-15); ASPARTATE AMINO TRANSFERASE 17 U/L (5-40); CALCIUM 7.1 mg/dL (8.6-10.2); CARBON DIOXIDE 19 mEQ/L (20-30); CHLORIDE 107 mEQ/L (98-107); CREATININE 5.5 mg/dL (0.7-1.2); HEMOLYSIS 6; MAGNESIUM 1.1 mg/dL (1.7-2.5); PHOSPHORUS 4.8 mg/dL (2.5-4.8); POTASSIUM 4.8 mEQ/L (3.4-4.9); SODIUM 145 mEQ/L (135-145); TOTAL PROTEIN 5.6 g/dL (6.6-8.7)
[2016-08-13 07:36] LABS: BASOPHILS % (AUTO) 0.3 % (0.0-2.0); EOSINOPHILS % (AUTO) 0.1 % (0.0-3.0); MEAN CORPUSCULAR VOLUME 97 FL (80-99); MEAN PLATELET VOLUME 8.4 FL (6.5-10.1); MONOCYTES % (AUTO) 7.6 % (1.0-10.0); NEUTROPHILS % (AUTO) 77.9 % (45.0-75.0); PLATELET COUNT 145 K/UL (150-450); RED BLOOD COUNT 2.87 M/UL (4.70-6.10); RED CELL DISTRIBUTION WIDTH 15.3 % (11.6-14.8); WHITE BLOOD COUNT 5.8 K/UL (4.8-10.8)
[2016-08-13 07:38] LABS: HEMOLYSIS 3; IRON 12 ug/dL (59-158); TOTAL IRON BINDING CAPACITY 188 ug/dL (250-400)
[2016-08-13 08:00] VITALS: BP 120/82
[2016-08-13] MEDS: Tums 500mg ORAL SCH ×3 (09:08→17:09)
[2016-08-13] MEDS: Calcitriol 0.5mcg Cap ORAL SCH (09:08)
[2016-08-13] MEDS: Theophylline ER 100mg ORAL SCH ×2 (09:09→21:05)
[2016-08-13] MEDS: Flonase Nasal Inhaler 16gm NASAL SCH ×2 (09:09→17:09)
[2016-08-13] MEDS: Metoprolol 25mg tab ORAL SCH ×2 (09:13→21:04)
--- NOTE | 2016-08-13 11:22 | Cardiac Electrophysiology PN ---
Subjective Subjective [id number] Objective Last 24 Hour Vital Signs Date Time Temp Pulse Resp B/P Pulse Ox O2 Delivery O2 Flow Rate FiO2 08/13/16 09:56 77 20 98 Nasal Cannula 3.0 32 08/13/16 09:46 32 08/13/16 09:45 75 20 95 Nasal Cannula 3.0 32 08/13/16 09:45 75 Nasal Cannula 3.0 32 08/13/16 09:45 Nasal Cannula 3.0 32 08/13/16 09:13 120 120/82 08/13/16 08:00 98.4 111 18 120/82 97 Room Air 08/13/16 08:00 108 08/13/16 06:12 122 140/77 08/13/16 04:11 99.1 105 22 141/77 94 Nasal Cannula 3.0 08/13/16 04:06 120 140/70 08/13/16 04:00 123 08/13/16 02:39 128 150/70 08/13/16 00:41 112 22 95 Nasal Cannula 4.0 36 08/13/16 00:33 36 08/13/16 00:32 122 24 90 Nasal Cannula 4.0 36 08/13/16 00:07 98.4 72 20 158/61 98 Nasal Cannula 3.0 08/13/16 00:00 121 08/12/16 21:37 69 162/65 08/12/16 20:00 63 08/12/16 20:00 97.8 69 22 162/65 93 Nasal Cannula 3.0 08/12/16 19:20 68 20 98 Nasal Cannula 4.0 36 08/12/16 19:15 Nasal Cannula 4.0 36 08/12/16 19:15 36 08/12/16 19:15 75 22 90 Nasal Cannula 4.0 36 08/12/16 19:15 90 Nasal Cannula 4.0 36 08/12/16 16:00 61 08/12/16 16:00 96.8 59 21 147/56 94 Nasal Cannula 3.0 08/12/16 13:44 63 18 96 Nasal Cannula 4.0 36 08/12/16 13:33 36 08/12/16 13:33 64 17 95 Nasal Cannula 4.0 36 Intake and Output 08/12/16 08/13/16 19:00 07:00 Intake Total 530 ml 540 ml Output Total 1750 ml Balance 530 ml -1210 ml Intake Oral 480 ml 540 ml IV Total 50 ml Output Urine Total 1750 ml # Voids 4 # Bowel Movements 1 Laboratory Tests Test 08/12/16 13:30 08/12/16 15:20 08/12/16 22:00 08/12/16 23:00 Sodium Level 142 mEQ/L (135-145) Potassium Level 5.5 mEQ/L (3.4-4.9) H Chloride Level 107 mEQ/L (98-107) Carbon Dioxide Level 16 mEQ/L (20-30) L Anion Gap 19 (5-15) H Blood Urea Nitrogen 49 mg/dL (7-23) H Creatinine 5.2 mg/dL (0.7-1.2) H Estimat Glomerular Filtration Rate mL/min (>60) Glucose Level 129 mg/dL (74-106) H Osmolality Pending Uric Acid 5.2 mg/dL (3.0-7.5) Calcium Level 7.0 mg/dL (8.6-10.2) L Magnesium Level 1.3 mg/dL (1.7-2.5) L Iron Level 15 ug/dL (59-158) L Total Iron Binding Capacity 193 ug/dL (250-400) L Percent Iron Saturation 8 % (15-50) L Unsaturated Iron Binding 178 ug/dL (112-346) Total Bilirubin < 0.2 mg/dL (0.0-1.2) Aspartate Amino Transf (AST/SGOT) 15 U/L (5-40) Alanine Aminotransferase (ALT/SGPT) 7 U/L (3-41) Alkaline Phosphatase 49 U/L (40-129) Lactate Dehydrogenase 263 U/L (135-230) H Total Creatine Kinase 151 U/L (38-174) Total Protein 5.2 g/dL (6.6-8.7) L Albumin 2.8 g/dL (3.5-5.2) L Globulin 2.4 g/dL Albumin/Globulin Ratio 1.1 (1.0-2.7) Carcinoembryonic Antigen 8.4 ng/mL H Vitamin B12 Level 655 pg/mL (211-946) Folate Pending Thyroid Stimulating Hormone (TSH) 0.695 uIU/mL (0.300-4.500) Free Thyroxine 0.83 ng/dL (0.86-1.85) L Free Triiodothyronine 1.3 pg/mL (2.3-4.2) L Cortisol 11.1 ug/dL Prothrombin Time 11.0 SEC (9.30-11.50) Prothromb Time International Ratio 1.1 (0.9-1.1) Activated Partial Thromboplast Time 27 SEC (23-33) Stool Occult Blood Pending Urine Color Pale yellow Urine Appearance Clear Urine pH 5 (4.5-8.0) Urine Specific [place] 1.010 (1.005-1.035) Urine Protein 3+ (NEGATIVE) H Urine Glucose (UA) Negative (NEGATIVE) Urine Ketones Negative (NEGATIVE) Urine Occult Blood 1+ (NEGATIVE) H Urine Nitrite Negative (NEGATIVE) Urine Bilirubin Negative (NEGATIVE) Urine Urobilinogen Normal MG/DL (0.0-1.0) Urine Leukocyte Esterase Negative (NEGATIVE) Urine RBC 0-2 /HPF (0 - 0) H Urine WBC 0-2 /HPF (0 - 0) Urine Squamous Epithelial Cells Few /LPF (NONE/OCC) Urine Bacteria Few /HPF (NONE) Urine Eosinophils None seen Urine Osmolality Pending Urine Random Sodium 88 mmol/L Urine Random Chloride 77 mmol/L Urine Potassium Timed 22 mmol/L Test 08/13/16 06:00 White Blood Count 5.8 K/UL (4.8-10.8) Red Blood Count 2.87 M/UL (4.70-6.10) L Hemoglobin 8.9 G/DL (14.2-18.0) L Hematocrit 27.9 % (42.0-52.0) L Mean Corpuscular Volume 97 FL (80-99) Mean Corpuscular Hemoglobin 31.0 PG (27.0-31.0) Mean Corpuscular Hemoglobin Concent 32.0 G/DL (32.0-36.0) Red Cell Distribution Width 15.3 % (11.6-14.8) H Platelet Count 145 K/UL (150-450) L Mean Platelet Volume 8.4 FL (6.5-10.1) Neutrophils (%) (Auto) 77.9 % (45.0-75.0) H Lymphocytes (%) (Auto) 14.0 % (20.0-45.0) L Monocytes (%) (Auto) 7.6 % (1.0-10.0) Eosinophils (%) (Auto) 0.1 % (0.0-3.0) Basophils (%) (Auto) 0.3 % (0.0-2.0) Sodium Level 145 mEQ/L (135-145) Potassium Level 4.8 mEQ/L (3.4-4.9) Chloride Level 107 mEQ/L (98-107) Carbon Dioxide Level 19 mEQ/L (20-30) L Anion Gap 19 (5-15) H Blood Urea Nitrogen 55 mg/dL (7-23) H Creatinine 5.5 mg/dL (0.7-1.2) H Estimat Glomerular Filtration Rate mL/min (>60) Glucose Level 96 mg/dL (74-106) Calcium Level 7.1 mg/dL (8.6-10.2) L Phosphorus Level 4.8 mg/dL (2.5-4.8) Magnesium Level 1.1 mg/dL (1.7-2.5) L Iron Level 12 ug/dL (59-158) L Total Iron Binding Capacity 188 ug/dL (250-400) L Percent Iron Saturation 6 % (15-50) L Unsaturated Iron Binding 176 ug/dL (112-346) Total Bilirubin < 0.2 mg/dL (0.0-1.2) Aspartate Amino Transf (AST/SGOT) 17 U/L (5-40) Alanine Aminotransferase (ALT/SGPT) 8 U/L (3-41) Alkaline Phosphatase 54 U/L (40-129) Total Protein 5.6 g/dL (6.6-8.7) L Albumin 3.1 g/dL (3.5-5.2) L Globulin 2.5 g/dL Albumin/Globulin Ratio 1.2 (1.0-2.7) Microbiology Date/Time Source Procedure Growth Status 08/11/16 20:30 Sputum Gram Stain - Final Resulted 08/11/16 20:30 Sputum Sputum Culture - Preliminary NORMAL UPPER RESPIRATORY RAZA AT 24 ... Resulted 08/11/16 08:09 Stool Clostridium difficile Toxin Assay - Final Complete 08/11/16 08:16 Rectum VRE Culture - Final NO VANCOMYCIN RESISTANT ENTEROCOCCUS ... Complete LO HENNESSY Aug 13, 2016 11:22
--- NOTE | 2016-08-13 11:51 | Diagnostic Imaging Report ---
Indication:Elevated Bun and Creatinine. Technique: Grayscale and duplex Doppler imaging of the kidneys performed. Comparison: None Findings: There are multiple cysts present within both kidneys of varying size. There is no hydronephrosis demonstrated. Renal echogenicity is within normal limits bilaterally. The urinary bladder is unremarkable as is the IVC. The right kidney is 10.9 CM and the left 11.4 CM in length. Largest cyst in the right kidney is 2.6 cm. The largest left renal cyst is about 3 cm. Impression: Multiple bilateral renal cysts
[2016-08-13 12:00] VITALS: BP 137/61
--- NOTE | 2016-08-13 12:28 | General Progress Note ---
Assessment/Plan Status: stable Assessment/Plan 1. Pneumonia - improved. cont IV cefepime 1 gm q 24 hrs. cont. breathing txt. 2. COPD - cont breathing txt. Dr raines is following the patient as well. 3. CKD - Dr Gonzalez is following the patient. 4. Hyperkalemia - improved. 5. H/O GI bleeding - stable now. Stool hemocult negative. 6. H/O Gastric Ulcer - stable. 7. H/o Sarcoidosis 8. 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 9. New Onset of A Fib - converted with NSR this morning. Cardiolgy is following the Patient. Subjective Date patient seen: Aug 13, 2016 Time patient seen: 12:00 Constitutional: Reports: no symptoms HEENT: Reports: no symptoms Cardiovascular: Reports: no symptoms Respiratory: Reports: cough Gastrointestinal/Abdominal: Reports: no symptoms Genitourinary: Reports: no symptoms Neurologic/Psychiatric: Reports: no symptoms Endocrine: Reports: no symptoms Hematologic/Lymphatic: Reports: no symptoms Allergies: Coded Allergies: No Known Allergies (Unverified , 04/12/12) Subjective Pt's coughing has improved. He is doing better today. He had episode of A fib last night and this morning converted to NSR. Afebrile. No sob or chest pain. no Nausea or vomiting. Objective Last 24 Hour Vital Signs Date Time Temp Pulse Resp B/P Pulse Ox O2 Delivery O2 Flow Rate FiO2 08/13/16 09:56 77 20 98 Nasal Cannula 3.0 32 08/13/16 09:46 32 08/13/16 09:45 75 20 95 Nasal Cannula 3.0 32 08/13/16 09:45 75 Nasal Cannula 3.0 32 08/13/16 09:45 Nasal Cannula 3.0 32 08/13/16 09:13 120 120/82 08/13/16 08:00 98.4 111 18 120/82 97 Room Air 08/13/16 08:00 108 08/13/16 06:12 122 140/77 08/13/16 04:11 99.1 105 22 141/77 94 Nasal Cannula 3.0 08/13/16 04:06 120 140/70 08/13/16 04:00 123 08/13/16 02:39 128 150/70 08/13/16 00:41 112 22 95 Nasal Cannula 4.0 36 08/13/16 00:33 36 08/13/16 00:32 122 24 90 Nasal Cannula 4.0 36 08/13/16 00:07 98.4 72 20 158/61 98 Nasal Cannula 3.0 08/13/16 00:00 121 08/12/16 21:37 69 162/65 08/12/16 20:00 63 08/12/16 20:00 97.8 69 22 162/65 93 Nasal Cannula 3.0 08/12/16 19:20 68 20 98 Nasal Cannula 4.0 36 08/12/16 19:15 Nasal Cannula 4.0 36 08/12/16 19:15 36 08/12/16 19:15 75 22 90 Nasal Cannula 4.0 36 08/12/16 19:15 90 Nasal Cannula 4.0 36 08/12/16 16:00 61 08/12/16 16:00 96.8 59 21 147/56 94 Nasal Cannula 3.0 08/12/16 13:44 63 18 96 Nasal Cannula 4.0 36 08/12/16 13:33 36 08/12/16 13:33 64 17 95 Nasal Cannula 4.0 36 Intake and Output 08/12/16 08/13/16 19:00 07:00 Intake Total 530 ml 540 ml Output Total 1750 ml Balance 530 ml -1210 ml Intake Oral 480 ml 540 ml IV Total 50 ml Output Urine Total 1750 ml # Voids 4 # Bowel Movements 1 Laboratory Tests 08/12/16 13:30: Sodium Level 142, Potassium Level 5.5H, Chloride Level 107, Carbon Dioxide Level 16L, Anion Gap 19H, Blood Urea Nitrogen 49H, Creatinine 5.2H, Estimat Glomerular Filtration Rate , Glucose Level 129H, Osmolality [Pending], Uric Acid 5.2, Calcium Level 7.0L, Magnesium Level 1.3L, Iron Level 15L, Total Iron Binding Capacity 193L, Percent Iron Saturation 8L, Unsaturated Iron Binding 178 , Total Bilirubin < 0.2, Aspartate Amino Transf (AST/SGOT) 15, Alanine Aminotransferase (ALT/SGPT) 7, Alkaline Phosphatase 49, Lactate Dehydrogenase 263H, Total Creatine Kinase 151, Total Protein 5.2L, Albumin 2.8L, Globulin 2.4 , Albumin/Globulin Ratio 1.1, Carcinoembryonic Antigen 8.4H, Vitamin B12 Level 655, Folate [Pending], Thyroid Stimulating Hormone (TSH) 0.695, Free Thyroxine 0.83L, Free Triiodothyronine 1.3L, Cortisol 11.1 08/12/16 15:20: Prothrombin Time 11.0, Prothromb Time International Ratio 1.1, Activated Partial Thromboplast Time 27 08/12/16 22:00: Stool Occult Blood [Pending] 08/12/16 23:00: Urine Color Pale yellow, Urine Appearance Clear, Urine pH 5, Urine Specific [place] 1.010, Urine Protein 3+H, Urine Glucose (UA) Negative, Urine Ketones Negative, Urine Occult Blood 1+H, Urine Nitrite Negative, Urine Bilirubin Negative, Urine Urobilinogen Normal, Urine Leukocyte Esterase Negative, Urine RBC 0-2H, Urine WBC 0-2, Urine Squamous Epithelial Cells Few, Urine Bacteria Few , Urine Eosinophils None seen, Urine Osmolality [Pending], Urine Random Sodium 88, Urine Random Chloride 77, Urine Potassium Timed 22 08/13/16 06:00: White Blood Count 5.8, Red Blood Count 2.87L, Hemoglobin 8.9L, Hematocrit 27.9L , Mean Corpuscular Volume 97, Mean Corpuscular Hemoglobin 31.0, Mean Corpuscular Hemoglobin Concent 32.0, Red Cell Distribution Width 15.3H, Platelet Count 145L, Mean Platelet Volume 8.4, Neutrophils (%) (Auto) 77.9H, Lymphocytes (%) (Auto) 14.0L, Monocytes (%) (Auto) 7.6, Eosinophils (%) (Auto) 0.1, Basophils (%) (Auto) 0.3, Sodium Level 145, Potassium Level 4.8, Chloride Level 107, Carbon Dioxide Level 19L, Anion Gap 19H, Blood Urea Nitrogen 55H, Creatinine 5.5H, Estimat Glomerular Filtration Rate , Glucose Level 96, Calcium Level 7.1L, Phosphorus Level 4.8, Magnesium Level 1.1L, Iron Level 12L, Total Iron Binding Capacity 188L, Percent Iron Saturation 6L, Unsaturated Iron Binding 176, Total Bilirubin < 0.2, Aspartate Amino Transf (AST/SGOT) 17, Alanine Aminotransferase (ALT/SGPT) 8, Alkaline Phosphatase 54, Total Protein 5.6L, Albumin 3.1L, Globulin 2.5, Albumin/Globulin Ratio 1.2 Height (Feet): 5 Height (Inches): 7.00 Weight (Pounds): 179 General Appearance: no apparent distress, alert Neck: non-tender, normal alignment, supple Cardiovascular: normal peripheral pulses, normal rate, regular rhythm Respiratory/Chest: normal breath sounds, no respiratory distress, crackles/ rales Abdomen: normal bowel sounds, non tender, soft Extremities: normal range of motion, non-tender Edema: no edema noted Arm (L), no edema noted Arm (R), no edema noted Leg (L), no edema noted Leg (R), no edema noted Pedal (L), no edema noted Pedal (R), no edema noted Generalized Neurologic: alert, oriented x 3, responsive Skin: warm/dry Lymphatic: normal anterior cervical (L), normal anterior cervical (R), normal axillary (L), normal axillary (R), normal inguinal (L), normal inguinal (R), normal other, normal posterior cervical (L), normal posterior cervical (R), normal submandibular (L), normal submandibular (R), normal supraclavicular (L), normal supraclavicular (R) LULU SHERMAN Aug 13, 2016 12:28
--- NOTE | 2016-08-13 12:39 | Pulmonology Progress Note ---
Assessment/Plan Assessment/Plan ASSESSMENT acute COPD exacerbation PNA possible CHF Anemia CKD Hx of sarcoidosis hypocalcemia hypomagnesemia Hx of C dif colitis active smoker PLAN OF CARE tele O2 HHN ATC and CPT abx, ID follows sputum cx negative, stool C dif negative CXR c/w bilateral congestive changes fup with CXR upright PA and lateral today cardio follows ECHO pending, check pro BNP on BB, Cardizem and Tambocor s/p Lasix x 1 , renal parameters with some worsening,creat up to 5.5 no steroids, just vigorous pulmonary toilet patient with hx of CKD, nephro follows renal US with no evade of hydro, normal echogenicity bilaterally aspiration precautions venous Duplex BLE monitor HH anemia workup with low iron, Venofer x 1 continue EPO anemia likely combination of anemia or chronic disease and iron deficiency anemia replace Mg, check Mg level in am Ca still low, on Rocaltrol and Ca carbonate, -per nephro management staff counselor on smoking cessation case discussed and evaluated by supervising physician Subjective Allergies: Coded Allergies: No Known Allergies (Unverified , 04/12/12) Subjective denies chess pain admits to intermittens dry cough, occasional SOB on RA sat stable afebrile, no leukocytosis m Mg-1.1 Objective Last 24 Hour Vital Signs Date Time Temp Pulse Resp B/P Pulse Ox O2 Delivery O2 Flow Rate FiO2 08/13/16 09:56 77 20 98 Nasal Cannula 3.0 32 08/13/16 09:46 32 08/13/16 09:45 75 20 95 Nasal Cannula 3.0 32 08/13/16 09:45 75 Nasal Cannula 3.0 32 08/13/16 09:45 Nasal Cannula 3.0 32 08/13/16 09:13 120 120/82 08/13/16 08:00 98.4 111 18 120/82 97 Room Air 08/13/16 08:00 108 08/13/16 06:12 122 140/77 08/13/16 04:11 99.1 105 22 141/77 94 Nasal Cannula 3.0 08/13/16 04:06 120 140/70 08/13/16 04:00 123 08/13/16 02:39 128 150/70 08/13/16 00:41 112 22 95 Nasal Cannula 4.0 36 08/13/16 00:33 36 08/13/16 00:32 122 24 90 Nasal Cannula 4.0 36 08/13/16 00:07 98.4 72 20 158/61 98 Nasal Cannula 3.0 08/13/16 00:00 121 08/12/16 21:37 69 162/65 08/12/16 20:00 63 08/12/16 20:00 97.8 69 22 162/65 93 Nasal Cannula 3.0 08/12/16 19:20 68 20 98 Nasal Cannula 4.0 36 08/12/16 19:15 Nasal Cannula 4.0 36 08/12/16 19:15 36 08/12/16 19:15 75 22 90 Nasal Cannula 4.0 36 08/12/16 19:15 90 Nasal Cannula 4.0 36 08/12/16 16:00 61 08/12/16 16:00 96.8 59 21 147/56 94 Nasal Cannula 3.0 08/12/16 13:44 63 18 96 Nasal Cannula 4.0 36 08/12/16 13:33 36 08/12/16 13:33 64 17 95 Nasal Cannula 4.0 36 Intake and Output 08/12/16 08/13/16 19:00 07:00 Intake Total 530 ml 540 ml Output Total 1750 ml Balance 530 ml -1210 ml Intake Oral 480 ml 540 ml IV Total 50 ml Output Urine Total 1750 ml # Voids 4 # Bowel Movements 1 General Appearance: WD/WN, no acute distress, other - awake, alert, responsive in NAD HEENT: normocephalic, atraumatic, anicteric, mucous membranes moist Respiratory/Chest: chest wall non-tender, no respiratory distress, no accessory muscle use, crackles/rales - some bibasilar crackles Cardiovascular: normal peripheral pulses, normal rate, regular rhythm, no JVD Abdomen: normal bowel sounds, soft, non tender, non distended Genitourinary: normal external genitalia Extremities: pedal pulses normal, other - tarce edema BLE L>R Neurologic/Psychiatric: alert, responsive, normal mood/affect Microbiology Date/Time Source Procedure Growth Status 08/11/16 20:30 Sputum Gram Stain - Final Resulted 08/11/16 20:30 Sputum Sputum Culture - Preliminary NORMAL UPPER RESPIRATORY RAZA AT 24 ... Resulted 08/11/16 08:09 Stool Clostridium difficile Toxin Assay - Final Complete 08/11/16 08:16 Rectum VRE Culture - Final NO VANCOMYCIN RESISTANT ENTEROCOCCUS ... Complete Laboratory Tests 08/12/16 13:30: Sodium Level 142, Potassium Level 5.5H, Chloride Level 107, Carbon Dioxide Level 16L, Anion Gap 19H, Blood Urea Nitrogen 49H, Creatinine 5.2H, Estimat Glomerular Filtration Rate , Glucose Level 129H, Osmolality [Pending], Uric Acid 5.2, Calcium Level 7.0L, Magnesium Level 1.3L, Iron Level 15L, Total Iron Binding Capacity 193L, Percent Iron Saturation 8L, Unsaturated Iron Binding 178 , Total Bilirubin < 0.2, Aspartate Amino Transf (AST/SGOT) 15, Alanine Aminotransferase (ALT/SGPT) 7, Alkaline Phosphatase 49, Lactate Dehydrogenase 263H, Total Creatine Kinase 151, Total Protein 5.2L, Albumin 2.8L, Globulin 2.4 , Albumin/Globulin Ratio 1.1, Carcinoembryonic Antigen 8.4H, Vitamin B12 Level 655, Folate [Pending], Thyroid Stimulating Hormone (TSH) 0.695, Free Thyroxine 0.83L, Free Triiodothyronine 1.3L, Cortisol 11.1 08/12/16 15:20: Prothrombin Time 11.0, Prothromb Time International Ratio 1.1, Activated Partial Thromboplast Time 27 08/12/16 22:00: Stool Occult Blood [Pending] 08/12/16 23:00: Urine Color Pale yellow, Urine Appearance Clear, Urine pH 5, Urine Specific [place] 1.010, Urine Protein 3+H, Urine Glucose (UA) Negative, Urine Ketones Negative, Urine Occult Blood 1+H, Urine Nitrite Negative, Urine Bilirubin Negative, Urine Urobilinogen Normal, Urine Leukocyte Esterase Negative, Urine RBC 0-2H, Urine WBC 0-2, Urine Squamous Epithelial Cells Few, Urine Bacteria Few , Urine Eosinophils None seen, Urine Osmolality [Pending], Urine Random Sodium 88, Urine Random Chloride 77, Urine Potassium Timed 22 08/13/16 06:00: White Blood Count 5.8, Red Blood Count 2.87L, Hemoglobin 8.9L, Hematocrit 27.9L , Mean Corpuscular Volume 97, Mean Corpuscular Hemoglobin 31.0, Mean Corpuscular Hemoglobin Concent 32.0, Red Cell Distribution Width 15.3H, Platelet Count 145L, Mean Platelet Volume 8.4, Neutrophils (%) (Auto) 77.9H, Lymphocytes (%) (Auto) 14.0L, Monocytes (%) (Auto) 7.6, Eosinophils (%) (Auto) 0.1, Basophils (%) (Auto) 0.3, Sodium Level 145, Potassium Level 4.8, Chloride Level 107, Carbon Dioxide Level 19L, Anion Gap 19H, Blood Urea Nitrogen 55H, Creatinine 5.5H, Estimat Glomerular Filtration Rate , Glucose Level 96, Calcium Level 7.1L, Phosphorus Level 4.8, Magnesium Level 1.1L, Iron Level 12L, Total Iron Binding Capacity 188L, Percent Iron Saturation 6L, Unsaturated Iron Binding 176, Total Bilirubin < 0.2, Aspartate Amino Transf (AST/SGOT) 17, Alanine Aminotransferase (ALT/SGPT) 8, Alkaline Phosphatase 54, Total Protein 5.6L, Albumin 3.1L, Globulin 2.5, Albumin/Globulin Ratio 1.2 Current Medications Medications (Trade) Dose Ordered Sig/Bereket Route PRN Reason Start Time Stop Time Status Last Admin Dose Admin Albuterol/ Ipratropium (DuoNeb 0.5-3(2.5)mg/3ml) 3 ml Q6HRT HHN 08/11/16 19:00 08/16/16 18:59 08/13/16 09:46 Atorvastatin Calcium (Lipitor) 20 mg BEDTIME ORAL 08/11/16 21:00 09/10/16 20:59 08/12/16 21:36 Bacitracin/ Polymyxin B Sulfate (Polysporin Oint) 1 applic BIDPRN PRN TOPIC for itchiness 08/11/16 15:00 09/10/16 14:59 Calcitriol (Rocaltrol) 0.5 mcg DAILY ORAL 08/12/16 09:00 09/11/16 08:59 08/13/16 09:08 Calcium Carbonate (Tums) 500 mg THREE TIMES A DAY ORAL 08/12/16 18:00 09/11/16 17:59 08/13/16 09:08 Cefepime HCl/ Dextrose (Maxipime/D5W 50ml) 50 ml @ 100 mls/hr Q24H IVPB 08/12/16 21:00 08/19/16 20:59 08/12/16 21:36 Clonidine HCl (Catapres) 0.1 mg EVERY 8 HOURS PRN ORAL For High Blood Pressure 08/11/16 10:45 09/10/16 10:44 Diltiazem HCl (Cardizem) 10 mg Q1HR PRN IV if HR >100 08/13/16 02:30 09/12/16 02:29 08/13/16 04:06 Diltiazem HCl (Cardizem) 60 mg EVERY 8 HOURS ORAL 08/13/16 06:00 09/12/16 05:59 08/13/16 06:12 Epoetin Yosi (Procrit (for ESRD on dialysis)) 5,000 units SUBQ 08/12/16 21:00 09/11/16 20:59 08/12/16 21:39 Flecainide Acetate (Tambocor) 50 mg Q12HR ORAL 08/13/16 21:00 09/12/16 20:59 Fluticasone Propionate (Flonase) 1 spray TWICE A DAY NASAL 08/11/16 18:00 09/10/16 17:59 08/13/16 09:09 Metoprolol Tartrate (Lopressor) 25 mg EVERY 12 HOURS ORAL 08/11/16 21:00 09/10/16 20:59 08/13/16 09:13 Pantoprazole (Protonix) 40 mg EVERY 12 HOURS ORAL 08/11/16 21:00 09/10/16 20:59 08/13/16 09:08 Theophylline 100 mg 100 mg EVERY 12 HOURS ORAL 08/11/16 21:00 09/10/16 20:59 08/13/16 09:09 Zolpidem Tartrate (Ambien) 10 mg HSPRN PRN ORAL Insomnia 08/11/16 10:45 09/10/16 10:44 08/12/16 21:54 [facility]Maria Isabel NP Aug 13, 2016 12:39
[2016-08-13 16:00] VITALS: BP 146/62
--- NOTE | 2016-08-13 16:32 | Nephrology Progress Note ---
Assessment/Plan Problem List: (1) CKD (chronic kidney disease) Assessment: no change (2) Hypocalcemia (3) Anemia Assessment: with iron deficiency Plan IV Iron Calcium and Vit D Diuresis follow labs Subjective Subjective In NAD Objective Objective Last 24 Hour Vital Signs Date Time Temp Pulse Resp B/P Pulse Ox O2 Delivery O2 Flow Rate FiO2 08/13/16 16:00 98.8 90 20 146/62 99 Nasal Cannula 3.0 08/13/16 13:53 75 137/61 08/13/16 13:25 86 20 98 Nasal Cannula 3.0 32 08/13/16 13:15 32 08/13/16 13:14 85 20 89 Room Air 21 08/13/16 12:00 97.7 72 22 137/61 96 Room Air 08/13/16 12:00 69 08/13/16 09:56 77 20 98 Nasal Cannula 3.0 32 08/13/16 09:46 32 08/13/16 09:45 75 20 95 Nasal Cannula 3.0 32 08/13/16 09:45 75 Nasal Cannula 3.0 32 08/13/16 09:45 Nasal Cannula 3.0 32 08/13/16 09:13 120 120/82 08/13/16 08:00 98.4 111 18 120/82 97 Room Air 08/13/16 08:00 108 08/13/16 06:12 122 140/77 08/13/16 04:11 99.1 105 22 141/77 94 Nasal Cannula 3.0 08/13/16 04:06 120 140/70 08/13/16 04:00 123 08/13/16 02:39 128 150/70 08/13/16 00:41 112 22 95 Nasal Cannula 4.0 36 08/13/16 00:33 36 08/13/16 00:32 122 24 90 Nasal Cannula 4.0 36 08/13/16 00:07 98.4 72 20 158/61 98 Nasal Cannula 3.0 08/13/16 00:00 121 08/12/16 21:37 69 162/65 08/12/16 20:00 63 08/12/16 20:00 97.8 69 22 162/65 93 Nasal Cannula 3.0 08/12/16 19:20 68 20 98 Nasal Cannula 4.0 36 08/12/16 19:15 Nasal Cannula 4.0 36 08/12/16 19:15 36 08/12/16 19:15 75 22 90 Nasal Cannula 4.0 36 08/12/16 19:15 90 Nasal Cannula 4.0 36 Intake and Output 08/12/16 08/13/16 19:00 07:00 Intake Total 530 ml 540 ml Output Total 1750 ml Balance 530 ml -1210 ml Intake Oral 480 ml 540 ml IV Total 50 ml Output Urine Total 1750 ml # Voids 4 # Bowel Movements 1 Laboratory Tests 08/12/16 22:00: Stool Occult Blood [Pending] 08/12/16 23:00: Urine Color Pale yellow, Urine Appearance Clear, Urine pH 5, Urine Specific [place] 1.010, Urine Protein 3+H, Urine Glucose (UA) Negative, Urine Ketones Negative, Urine Occult Blood 1+H, Urine Nitrite Negative, Urine Bilirubin Negative, Urine Urobilinogen Normal, Urine Leukocyte Esterase Negative, Urine RBC 0-2H, Urine WBC 0-2, Urine Squamous Epithelial Cells Few, Urine Bacteria Few , Urine Eosinophils None seen, Urine Osmolality [Pending], Urine Random Sodium 88, Urine Random Chloride 77, Urine Potassium Timed 22 08/13/16 06:00: White Blood Count 5.8, Red Blood Count 2.87L, Hemoglobin 8.9L, Hematocrit 27.9L , Mean Corpuscular Volume 97, Mean Corpuscular Hemoglobin 31.0, Mean Corpuscular Hemoglobin Concent 32.0, Red Cell Distribution Width 15.3H, Platelet Count 145L, Mean Platelet Volume 8.4, Neutrophils (%) (Auto) 77.9H, Lymphocytes (%) (Auto) 14.0L, Monocytes (%) (Auto) 7.6, Eosinophils (%) (Auto) 0.1, Basophils (%) (Auto) 0.3, Sodium Level 145, Potassium Level 4.8, Chloride Level 107, Carbon Dioxide Level 19L, Anion Gap 19H, Blood Urea Nitrogen 55H, Creatinine 5.5H, Estimat Glomerular Filtration Rate , Glucose Level 96, Calcium Level 7.1L, Phosphorus Level 4.8, Magnesium Level 1.1L, Iron Level 12L, Total Iron Binding Capacity 188L, Percent Iron Saturation 6L, Unsaturated Iron Binding 176, Total Bilirubin < 0.2, Aspartate Amino Transf (AST/SGOT) 17, Alanine Aminotransferase (ALT/SGPT) 8, Alkaline Phosphatase 54, Total Protein 5.6L, Albumin 3.1L, Globulin 2.5, Albumin/Globulin Ratio 1.2 Height (Feet): 5 Height (Inches): 7.00 Weight (Pounds): 179 Cardiovascular: normal rate Respiratory/Chest: lungs clear Extremities: moderate edema - less CHRISTINA DELUNA Aug 13, 2016 16:32
[2016-08-13] MEDS ORDERED: Tubing IV Secondary IV ONE (17:05)
[2016-08-13] MEDS ORDERED: 1/2 NS 1000ml IV ONE (17:05)
[2016-08-13] MEDS ORDERED: D5 1/2NS 1000ml IV ONE (17:05)
[2016-08-13 20:00] VITALS: BP 138/54
[2016-08-13] MEDS: Atorvastatin 20mg tab ORAL SCH (21:05)
--- NOTE | 2016-08-13 21:47 | Consultation ---
DATE OF CONSULTATION: 08/13/2016 CARDIOLOGY CONSULTATION REFERRING PHYSICIAN: Bacilio Steve M.D. REASON FOR CONSULTATION: Atrial fibrillation with rapid ventricular response. HISTORY OF PRESENT ILLNESS: The patient is an 86-year-old [place] gentleman with history of hypertension and history of atrial fibrillation in the past, who was on Xarelto that was discontinued in view of GI bleed. The patient's last admission was 06/08/2016 for upper GI bleeding, hemoglobin 7.7, and melanotic stool. The patient also was found to have renal failure with baseline creatinine of 4.5. At that time, the patient received two units of blood transfusion, underwent endoscopy by Dr. Tony for gastric ulcer. The patient was readmitted. The patient was noted to have increased lower extremity edema. Overnight, the patient had atrial fibrillation with rapid ventricular response and was transferred to the telemetry unit. The patient was started on Cardizem and cardiac electrophysiology consultation was obtained for further evaluation and management. REVIEW OF SYSTEMS: Negative other what was mentioned in history of present illness. PAST MEDICAL HISTORY: 1. Hypertension. 2. History of atrial fibrillation. 3. History of amyloidosis. 4. GI bleed. 5. C. difficile colitis. 6. Chronic kidney disease. ALLERGIES: He has no known drug allergies. SOCIAL HISTORY: He lives at home. Has a long history of smoking and history of heavy drinking, but stopped about a month ago. FAMILY HISTORY: Noncontributory. PHYSICAL EXAMINATION: VITAL SIGNS: Blood pressure is 120/80, pulse 120, respirations 18, and he is afebrile. HEAD AND NECK: Shows no JVD. LUNGS: Coarse rhonchi. CARDIOVASCULAR: Shows regular S1 and S2 with no gallop or murmur. ABDOMEN: Soft and nontender. EXTREMITIES: Have 2+ bilateral pitting edema. LABORATORY DATA: White count 5.8, hemoglobin 8.9, hematocrit 28, and platelet count of 145,000. His hemoglobin yesterday was 7.7. His chemistries, sodium 142, potassium 5.5, BUN 49, and creatinine 5.5. Iron is 16, TIBC 193, LDH is 263. ASSESSMENT AND PLAN: 1. Atrial fibrillation with rapid ventricular response. The patient just spontaneously converted to sinus rhythm. Keep the patient on Cardizem 60 mg every 8 hours, completely rule out myocardial infarction protocol. We will repeat echocardiogram, which showed wall motion abnormality. I will hold off on digoxin as there is a potential risk in this patient with acute renal failure. The patient told that he has had a Cardiology followup with Dr. Fink with no prior myocardial infarction or known coronary artery disease but we will start him on low dose 60 mg b.i.d. to suppress his arrhythmia. I will keep him on Cardizem. All his anticoagulations are held in view of patient's severe anemia and recurrent known gastrointestinal bleed. 2. Hypertension. Continue the patient on Cardizem 60 mg every eight hours. The patient metoprolol 25 mg b.i.d. 3. History of enlarged heart. An echocardiogram will be repeated. 4. Hyperlipidemia, on Lipitor. 5. 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 Mathews. 6. Chronic kidney disease. Creatinine of more than 5. 7. History of recent gastrointestinal bleed and severe anemia, on . Thank very much, Dr. Steve for allowing me to participate in the care of this patient. Please do not hesitate to contact me if you have any questions regarding my evaluation. The case was discussed with the patient's son at bedside. Eduin Bailey M.D. DR: BRENDA JOB#: [id number] CC:
[2016-08-14] VITALS: BP 143/53
[2016-08-14] MEDS: DuoNeb 0.5-3(2.5)mg/3ml neb HHN SCH ×4 (00:48→20:28)
[2016-08-14 04:00] VITALS: BP 138/63
[2016-08-14 07:52] LABS: BASOPHILS % (AUTO) 0.4 % (0.0-2.0); EOSINOPHILS % (AUTO) 0.4 % (0.0-3.0); LYMPHOCYTES % (AUTO) 37.5 % (20.0-45.0); MEAN CORPUSCULAR HEMOGLOBIN 29.5 PG (27.0-31.0); MEAN CORPUSCULAR HGB CONC 29.8 G/DL (32.0-36.0); MEAN CORPUSCULAR VOLUME 99 FL (80-99); MONOCYTES % (AUTO) 8.5 % (1.0-10.0); NEUTROPHILS % (AUTO) 53.3 % (45.0-75.0); PLATELET COUNT 126 K/UL (150-450); RED CELL DISTRIBUTION WIDTH 15.5 % (11.6-14.8); WHITE BLOOD COUNT 4.7 K/UL (4.8-10.8)
[2016-08-14 08:00] VITALS: BP 144/54
[2016-08-14 08:09] LABS: TROPONIN I < 0.30 ng/mL (<=0.30)
[2016-08-14 08:15] LABS: ANION GAP 17 (5-15); CALCIUM 6.7 mg/dL (8.6-10.2); CARBON DIOXIDE 21 mEQ/L (20-30); CHLORIDE 104 mEQ/L (98-107); CREATININE 5.5 mg/dL (0.7-1.2); HEMOLYSIS 3; MAGNESIUM 1.5 mg/dL (1.7-2.5); POTASSIUM 4.2 mEQ/L (3.4-4.9); SODIUM 142 mEQ/L (135-145)
[2016-08-14 08:19] LABS: THYROID STIMULATING HORMONE 2.73 uIU/mL (0.300-4.500)
[2016-08-14 08:21] LABS: CHOLESTEROL/HDL RATIO 2.4 (3.3-4.4)
[2016-08-14] MEDS: Tums 500mg ORAL SCH ×3 (08:52→18:00)
[2016-08-14] MEDS: Calcitriol 0.5mcg Cap ORAL SCH (08:52)
[2016-08-14] MEDS: Theophylline ER 100mg ORAL SCH ×2 (08:52→22:08)
[2016-08-14] MEDS: Flonase Nasal Inhaler 16gm NASAL SCH ×2 (08:53→18:00)
[2016-08-14] MEDS: Metoprolol 25mg tab ORAL SCH ×2 (08:55→21:16)
[2016-08-14 09:55] LABS: FOLIC ACID 10.8 ng/mL (3.1-17.5)
--- NOTE | 2016-08-14 10:16 | Pulmonology Progress Note ---
Assessment/Plan Assessment/Plan ASSESSMENT acute COPD exacerbation PNA possible CHF Anemia CKD Hx of sarcoidosis hypocalcemia hypomagnesemia Hx of C dif colitis active smoker PLAN OF CARE tele O2 HHN ATC and CPT abx, ID follows sputum cx negative, stool C dif negative CXR c/w bilateral congestive changes fup with CXR upright PA and lateral today cardio follows ECHO with EF 65% and RVSP of 17 on BB, Cardizem and Tambocor s/p Lasix x 1 , pro BNP 52413 - , crackles, need Lasix- per nephro agreement renal parameters with worsening,creat up to 5.5 no steroids, just vigorous pulmonary toilet patient with hx of CKD, nephro follows renal US with no evidence of hydro, normal echogenicity bilaterally aspiration precautions venous Duplex BLE anemia workup with low iron, s/p Venofer x 1 08/13 continue EPO , will hold on blood transfusion today and recheck HH in am anemia likely combination of anemia or chronic disease and iron deficiency anemia Mg still low, replace Mg, check Mg level in am Ca still low, on Rocaltrol and Ca carbonate, -per nephro management correctional counselor/case manager on smoking cessation case discussed and evaluated by supervising physician Subjective Allergies: Coded Allergies: No Known Allergies (Unverified , 04/12/12) Subjective denies chess pain admits to intermittens dry cough, occasional SOB on RA sat stable afebrile, no leukocytosis HH down to 8.0/26.8 creat up to 5.5 per became confused last night after Ambien Objective Last 24 Hour Vital Signs Date Time Temp Pulse Resp B/P Pulse Ox O2 Delivery O2 Flow Rate FiO2 08/14/16 08:55 66 144/54 08/14/16 08:00 61 08/14/16 06:54 63 20 92 Nasal Cannula 2.0 28 08/14/16 06:52 92 Nasal Cannula 2.0 28 08/14/16 06:52 Nasal Cannula 2.0 28 08/14/16 06:52 63 20 92 Nasal Cannula 2.0 28 08/14/16 05:28 78 138/63 08/14/16 04:00 98.1 78 19 138/63 93 Nasal Cannula 3.0 08/14/16 04:00 80 08/14/16 00:55 56 20 97 Nasal Cannula 3.0 32 08/14/16 00:48 32 08/14/16 00:47 56 21 94 Nasal Cannula 3.0 08/14/16 00:00 98.2 77 22 143/53 91 Nasal Cannula 3.0 08/13/16 21:04 71 142/53 08/13/16 21:04 71 142/53 08/13/16 20:00 97.8 70 21 138/54 92 Nasal Cannula 3.0 08/13/16 20:00 63 08/13/16 19:49 88 20 96 Nasal Cannula 3.0 32 08/13/16 19:44 32 08/13/16 19:43 74 21 92 Room Air 21 08/13/16 19:42 92 Nasal Cannula 3.0 32 08/13/16 19:42 Nasal Cannula 3.0 32 08/13/16 16:00 98.8 90 20 146/62 99 Nasal Cannula 3.0 08/13/16 16:00 69 08/13/16 13:53 75 137/61 08/13/16 13:25 86 20 98 Nasal Cannula 3.0 32 08/13/16 13:15 32 08/13/16 13:14 85 20 89 Room Air 21 08/13/16 12:00 97.7 72 22 137/61 96 Room Air 08/13/16 12:00 69 Intake and Output 08/13/16 08/14/16 19:00 07:00 Intake Total 595 ml 100 ml Balance 595 ml 100 ml Intake Oral 440 ml IV Total 155 ml 100 ml # Voids 1 Objective General Appearance: WD/WN, no acute distress, awake, alert, responsive in NAD HEENT: normocephalic, atraumatic, anicteric, mucous membranes moist Respiratory/Chest: chest wall non-tender, no respiratory distress, no accessory muscle use, some bibasilar crackles Cardiovascular: normal peripheral pulses, normal rate, regular rhythm, no JVD Abdomen: normal bowel sounds, soft, non tender, non distended Genitourinary: normal external genitalia Extremities: pedal pulses normal, other - trace edema BLE L>R Neurologic/Psychiatric: alert, responsive, normal mood/affect Microbiology Date/Time Source Procedure Growth Status 08/11/16 20:30 Sputum Gram Stain - Final Complete 08/11/16 20:30 Sputum Sputum Culture - Final NORMAL UPPER RESPIRATORY RAZA PRESENT Complete Laboratory Tests 08/14/16 05:55: White Blood Count 4.7L, Red Blood Count 2.70L, Hemoglobin 8.0L, Hematocrit 26.8L , Mean Corpuscular Volume 99, Mean Corpuscular Hemoglobin 29.5, Mean Corpuscular Hemoglobin Concent 29.8L, Red Cell Distribution Width 15.5H, Platelet Count 126L, Mean Platelet Volume 9.0, Neutrophils (%) (Auto) 53.3, Lymphocytes (%) (Auto) 37.5, Monocytes (%) (Auto) 8.5, Eosinophils (%) (Auto) 0.4, Basophils (%) (Auto) 0.4, Sodium Level 142, Potassium Level 4.2, Chloride Level 104, Carbon Dioxide Level 21, Anion Gap 17H, Blood Urea Nitrogen 52H, Creatinine 5.5H, Estimat Glomerular Filtration Rate , Glucose Level 95, Calcium Level 6.7L, Magnesium Level 1.5L, Troponin I < 0.30, Pro-B-Type Natriuretic Peptide 88990B, Triglycerides Level 100, Cholesterol Level 99, LDL Cholesterol 38L, HDL Cholesterol 41, Cholesterol/HDL Ratio 2.4L, Thyroid Stimulating Hormone (TSH) 2.730, Free Thyroxine 1.07 Current Medications Medications (Trade) Dose Ordered Sig/Bereket Route PRN Reason Start Time Stop Time Status Last Admin Dose Admin Albuterol/ Ipratropium (DuoNeb 0.5-3(2.5)mg/3ml) 3 ml Q6HRT HHN 08/11/16 19:00 08/16/16 18:59 08/14/16 00:48 Atorvastatin Calcium (Lipitor) 20 mg BEDTIME ORAL 08/11/16 21:00 09/10/16 20:59 08/13/16 21:05 Bacitracin/ Polymyxin B Sulfate (Polysporin Oint) 1 applic BIDPRN PRN TOPIC for itchiness 08/11/16 15:00 09/10/16 14:59 Calcitriol (Rocaltrol) 0.5 mcg DAILY ORAL 08/12/16 09:00 09/11/16 08:59 08/14/16 08:52 Calcium Carbonate (Tums) 500 mg THREE TIMES A DAY ORAL 08/12/16 18:00 09/11/16 17:59 08/14/16 08:52 Cefepime HCl/ Dextrose (Maxipime/D5W 50ml) 50 ml @ 100 mls/hr Q24H IVPB 08/12/16 21:00 08/19/16 20:59 08/13/16 21:04 Clonidine HCl (Catapres) 0.1 mg EVERY 8 HOURS PRN ORAL For High Blood Pressure 08/11/16 10:45 09/10/16 10:44 Diltiazem HCl (Cardizem) 10 mg Q1HR PRN IV if HR >100 08/13/16 02:30 09/12/16 02:29 08/13/16 04:06 Diltiazem HCl (Cardizem) 60 mg EVERY 8 HOURS ORAL 08/13/16 06:00 09/12/16 05:59 08/14/16 05:28 Epoetin Yosi (Procrit (for ESRD on dialysis)) 5,000 units SUBQ 08/12/16 21:00 09/11/16 20:59 08/12/16 21:39 Flecainide Acetate (Tambocor) 50 mg Q12HR ORAL 08/13/16 21:00 09/12/16 20:59 08/14/16 08:59 Fluticasone Propionate (Flonase) 1 spray TWICE A DAY NASAL 08/11/16 18:00 09/10/16 17:59 08/14/16 08:53 Metoprolol Tartrate (Lopressor) 25 mg EVERY 12 HOURS ORAL 08/11/16 21:00 09/10/16 20:59 08/14/16 08:55 Pantoprazole (Protonix) 40 mg EVERY 12 HOURS ORAL 08/11/16 21:00 09/10/16 20:59 08/14/16 08:52 Theophylline 100 mg 100 mg EVERY 12 HOURS ORAL 08/11/16 21:00 09/10/16 20:59 08/14/16 08:52 Zolpidem Tartrate (Ambien) 10 mg HSPRN PRN ORAL Insomnia 08/11/16 10:45 09/10/16 10:44 08/12/16 21:54 Scotty HernandezMaria Isabel atkins NP Aug 14, 2016 10:16
--- NOTE | 2016-08-14 11:29 | Cardiac Electrophysiology PN ---
Assessment/Plan Assessment/Plan 1. Atrial fibrillation with rapid ventricular response. Converted to sinus rhythm. Continue Flecainide 50 bid, Metoprolol 25 bid and Cardizem 60 mg every 8 hour. Ruled out for myocardial infarction. Echo showed EF 65%.Off anticoagulations for severe anemia and recurrent known gastrointestinal bleed. 2. Hypertension. Continue Cardizem 60 mg every eight hours and metoprolol 25 mg b.i.d. 3. History of enlarged heart. Echocardiogram showed EF 65% 4. Hyperlipidemia, on Lipitor. 5. 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 Mathews. 6. Chronic kidney disease. Creatinine of more than 5.Follow up Dr Gonzalez. 7. History of recent gastrointestinal bleed and severe anemia DW and son at bedside. Subjective Subjective Converted to SR and stayed in SR overnight. Slightly confused after he got Ambien last night. Family at bedside. Objective Last 24 Hour Vital Signs Date Time Temp Pulse Resp B/P Pulse Ox O2 Delivery O2 Flow Rate FiO2 08/14/16 08:55 66 144/54 08/14/16 08:00 61 08/14/16 08:00 97.3 66 22 144/54 92 Nasal Cannula 3.0 08/14/16 06:54 63 20 92 Nasal Cannula 2.0 28 08/14/16 06:52 92 Nasal Cannula 2.0 28 08/14/16 06:52 Nasal Cannula 2.0 28 08/14/16 06:52 63 20 92 Nasal Cannula 2.0 28 08/14/16 05:28 78 138/63 08/14/16 04:00 98.1 78 19 138/63 93 Nasal Cannula 3.0 08/14/16 04:00 80 08/14/16 00:55 56 20 97 Nasal Cannula 3.0 32 08/14/16 00:48 32 08/14/16 00:47 56 21 94 Nasal Cannula 3.0 08/14/16 00:00 98.2 77 22 143/53 91 Nasal Cannula 3.0 08/13/16 21:04 71 142/53 08/13/16 21:04 71 142/53 08/13/16 20:00 97.8 70 21 138/54 92 Nasal Cannula 3.0 08/13/16 20:00 63 08/13/16 19:49 88 20 96 Nasal Cannula 3.0 32 08/13/16 19:44 32 08/13/16 19:43 74 21 92 Room Air 21 08/13/16 19:42 92 Nasal Cannula 3.0 32 08/13/16 19:42 Nasal Cannula 3.0 32 08/13/16 16:00 98.8 90 20 146/62 99 Nasal Cannula 3.0 08/13/16 16:00 69 08/13/16 13:53 75 137/61 08/13/16 13:25 86 20 98 Nasal Cannula 3.0 32 08/13/16 13:15 32 08/13/16 13:14 85 20 89 Room Air 21 08/13/16 12:00 97.7 72 22 137/61 96 Room Air 08/13/16 12:00 69 Intake and Output 08/13/16 08/14/16 19:00 07:00 Intake Total 595 ml 100 ml Balance 595 ml 100 ml Intake Oral 440 ml IV Total 155 ml 100 ml # Voids 1 Laboratory Tests Test 08/14/16 05:55 White Blood Count 4.7 K/UL (4.8-10.8) L Red Blood Count 2.70 M/UL (4.70-6.10) L Hemoglobin 8.0 G/DL (14.2-18.0) L Hematocrit 26.8 % (42.0-52.0) L Mean Corpuscular Volume 99 FL (80-99) Mean Corpuscular Hemoglobin 29.5 PG (27.0-31.0) Mean Corpuscular Hemoglobin Concent 29.8 G/DL (32.0-36.0) L Red Cell Distribution Width 15.5 % (11.6-14.8) H Platelet Count 126 K/UL (150-450) L Mean Platelet Volume 9.0 FL (6.5-10.1) Neutrophils (%) (Auto) 53.3 % (45.0-75.0) Lymphocytes (%) (Auto) 37.5 % (20.0-45.0) Monocytes (%) (Auto) 8.5 % (1.0-10.0) Eosinophils (%) (Auto) 0.4 % (0.0-3.0) Basophils (%) (Auto) 0.4 % (0.0-2.0) Sodium Level 142 mEQ/L (135-145) Potassium Level 4.2 mEQ/L (3.4-4.9) Chloride Level 104 mEQ/L (98-107) Carbon Dioxide Level 21 mEQ/L (20-30) Anion Gap 17 (5-15) H Blood Urea Nitrogen 52 mg/dL (7-23) H Creatinine 5.5 mg/dL (0.7-1.2) H Estimat Glomerular Filtration Rate mL/min (>60) Glucose Level 95 mg/dL (74-106) Calcium Level 6.7 mg/dL (8.6-10.2) L Magnesium Level 1.5 mg/dL (1.7-2.5) L Troponin I < 0.30 ng/mL (<=0.30) Pro-B-Type Natriuretic Peptide 75503 pg/mL (0-450) H Triglycerides Level 100 mg/dL (< 150) Cholesterol Level 99 mg/dL (< 200) LDL Cholesterol 38 mg/dL (60-99) L HDL Cholesterol 41 mg/dL (> 60) Cholesterol/HDL Ratio 2.4 (3.3-4.4) L Thyroid Stimulating Hormone (TSH) 2.730 uIU/mL (0.300-4.500) Free Thyroxine 1.07 ng/dL (0.86-1.85) Microbiology Date/Time Source Procedure Growth Status 08/11/16 20:30 Sputum Gram Stain - Final Complete 08/11/16 20:30 Sputum Sputum Culture - Final NORMAL UPPER RESPIRATORY RAAZ PRESENT Complete Objective HEAD AND NECK: Shows no JVD. LUNGS: Coarse rhonchi. CARDIOVASCULAR: Shows regular S1 and S2 with no gallop or murmur. ABDOMEN: Soft and nontender. EXTREMITIES: Have 2+ bilateral pitting edema. LO HENNESSY Aug 14, 2016 11:29
[2016-08-14 12:00] VITALS: BP 136/59
--- NOTE | 2016-08-14 15:00 | Cardiology Report ---
APPROVED REPORT EKG Measurement Heart [id number] Normal sinus rhythm Right bundle branch block Abnormal ECG
--- NOTE | 2016-08-14 15:50 | General Progress Note ---
Assessment/Plan Status: stable Assessment/Plan 1. Pneumonia - improved. cont IV cefepime 1 gm q 24 hrs. cont. breathing txt. 2. COPD - cont breathing txt. Dr raines is following the patient. 3. CKD - Dr Gonzalez is following the patient. 4. Hyperkalemia - resolved. 5. H/O GI bleeding - stable now. Stool hemocult negative. 6. H/O Gastric Ulcer - stable. 7. Hypomagnesemia - replaced Mg. 8. 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 9. New Onset A Fib - converted with NSR. continue current txt. Subjective Date patient seen: Aug 14, 2016 Time patient seen: 03:45 Constitutional: Reports: weakness HEENT: Reports: no symptoms Cardiovascular: Reports: no symptoms Respiratory: Reports: cough Gastrointestinal/Abdominal: Reports: no symptoms Genitourinary: Reports: no symptoms Neurologic/Psychiatric: Reports: no symptoms Endocrine: Reports: no symptoms Hematologic/Lymphatic: Reports: no symptoms Allergies: Coded Allergies: No Known Allergies (Unverified , 04/12/12) Subjective Pt's coughing has improved. Afebrile. He is in sinus rhythm now. No sob or chest pain. no Nausea or vomiting. Objective Last 24 Hour Vital Signs Date Time Temp Pulse Resp B/P Pulse Ox O2 Delivery O2 Flow Rate FiO2 08/14/16 14:17 70 136/59 08/14/16 12:35 76 20 97 Nasal Cannula 2.0 28 08/14/16 12:30 68 20 90 Nasal Cannula 4.0 36 08/14/16 12:30 36 08/14/16 12:00 98.0 72 24 136/59 93 Nasal Cannula 3.0 08/14/16 08:55 66 144/54 08/14/16 08:00 61 08/14/16 08:00 97.3 66 22 144/54 92 Nasal Cannula 3.0 08/14/16 06:54 63 20 92 Nasal Cannula 2.0 28 08/14/16 06:52 92 Nasal Cannula 2.0 28 08/14/16 06:52 Nasal Cannula 2.0 28 08/14/16 06:52 63 20 92 Nasal Cannula 2.0 28 08/14/16 05:28 78 138/63 08/14/16 04:00 98.1 78 19 138/63 93 Nasal Cannula 3.0 08/14/16 04:00 80 08/14/16 00:55 56 20 97 Nasal Cannula 3.0 32 08/14/16 00:48 32 08/14/16 00:47 56 21 94 Nasal Cannula 3.0 08/14/16 00:00 98.2 77 22 143/53 91 Nasal Cannula 3.0 08/13/16 21:04 71 142/53 08/13/16 21:04 71 142/53 08/13/16 20:00 97.8 70 21 138/54 92 Nasal Cannula 3.0 08/13/16 20:00 63 08/13/16 19:49 88 20 96 Nasal Cannula 3.0 32 08/13/16 19:44 32 08/13/16 19:43 74 21 92 Room Air 21 08/13/16 19:42 92 Nasal Cannula 3.0 32 08/13/16 19:42 Nasal Cannula 3.0 32 08/13/16 16:00 98.8 90 20 146/62 99 Nasal Cannula 3.0 08/13/16 16:00 69 Intake and Output 08/13/16 08/14/16 19:00 07:00 Intake Total 595 ml 100 ml Balance 595 ml 100 ml Intake Oral 440 ml IV Total 155 ml 100 ml # Voids 1 Laboratory Tests 08/14/16 05:55: White Blood Count 4.7L, Red Blood Count 2.70L, Hemoglobin 8.0L, Hematocrit 26.8L , Mean Corpuscular Volume 99, Mean Corpuscular Hemoglobin 29.5, Mean Corpuscular Hemoglobin Concent 29.8L, Red Cell Distribution Width 15.5H, Platelet Count 126L, Mean Platelet Volume 9.0, Neutrophils (%) (Auto) 53.3, Lymphocytes (%) (Auto) 37.5, Monocytes (%) (Auto) 8.5, Eosinophils (%) (Auto) 0.4, Basophils (%) (Auto) 0.4, Sodium Level 142, Potassium Level 4.2, Chloride Level 104, Carbon Dioxide Level 21, Anion Gap 17H, Blood Urea Nitrogen 52H, Creatinine 5.5H, Estimat Glomerular Filtration Rate , Glucose Level 95, Calcium Level 6.7L, Magnesium Level 1.5L, Troponin I < 0.30, Pro-B-Type Natriuretic Peptide [id number], Triglycerides Level 100, Cholesterol Level 99, LDL Cholesterol 38L, HDL Cholesterol 41, Cholesterol/HDL Ratio 2.4L, Thyroid Stimulating Hormone (TSH) 2.730, Free Thyroxine 1.07 Height (Feet): 5 Height (Inches): 7.00 Weight (Pounds): 179 General Appearance: no apparent distress, alert Neck: non-tender, normal alignment, supple Cardiovascular: normal peripheral pulses, normal rate, regular rhythm Abdomen: normal bowel sounds, non tender, soft Extremities: normal range of motion, non-tender Edema: no edema noted Arm (L), no edema noted Arm (R), no edema noted Leg (L), no edema noted Leg (R), no edema noted Pedal (L), no edema noted Pedal (R), no edema noted Generalized Neurologic: alert, oriented x 3, responsive Skin: warm/dry Lymphatic: normal anterior cervical (L), normal anterior cervical (R), normal axillary (L), normal axillary (R), normal inguinal (L), normal inguinal (R), normal other, normal posterior cervical (L), normal posterior cervical (R), normal submandibular (L), normal submandibular (R), normal supraclavicular (L), normal supraclavicular (R) LULU SHERMAN Aug 14, 2016 15:50
[2016-08-14 16:00] VITALS: BP 139/52
--- NOTE | 2016-08-14 16:57 | Nephrology Progress Note ---
Assessment/Plan Problem List: (1) CKD (chronic kidney disease) Assessment: no change (2) Hypocalcemia (3) Anemia Assessment: with iron deficiency (4) Hypomagnesemia Plan IV Iron Calcium and Vit D Replete Mag Diuresis follow labs discussed with Maria Isabel Fajardo NP Subjective Subjective In NAD Objective Objective Last 24 Hour Vital Signs Date Time Temp Pulse Resp B/P Pulse Ox O2 Delivery O2 Flow Rate FiO2 08/14/16 16:00 97.9 60 22 139/52 98 Nasal Cannula 2.0 08/14/16 14:17 70 136/59 08/14/16 12:35 76 20 97 Nasal Cannula 2.0 28 08/14/16 12:30 68 20 90 Nasal Cannula 4.0 36 08/14/16 12:30 36 08/14/16 12:00 98.0 72 24 136/59 93 Nasal Cannula 3.0 08/14/16 08:55 66 144/54 08/14/16 08:00 61 08/14/16 08:00 97.3 66 22 144/54 92 Nasal Cannula 3.0 08/14/16 06:54 63 20 92 Nasal Cannula 2.0 28 08/14/16 06:52 92 Nasal Cannula 2.0 28 08/14/16 06:52 Nasal Cannula 2.0 28 08/14/16 06:52 63 20 92 Nasal Cannula 2.0 28 08/14/16 05:28 78 138/63 08/14/16 04:00 98.1 78 19 138/63 93 Nasal Cannula 3.0 08/14/16 04:00 80 08/14/16 00:55 56 20 97 Nasal Cannula 3.0 32 08/14/16 00:48 32 08/14/16 00:47 56 21 94 Nasal Cannula 3.0 08/14/16 00:00 98.2 77 22 143/53 91 Nasal Cannula 3.0 08/13/16 21:04 71 142/53 08/13/16 21:04 71 142/53 08/13/16 20:00 97.8 70 21 138/54 92 Nasal Cannula 3.0 08/13/16 20:00 63 08/13/16 19:49 88 20 96 Nasal Cannula 3.0 32 08/13/16 19:44 32 08/13/16 19:43 74 21 92 Room Air 21 08/13/16 19:42 92 Nasal Cannula 3.0 32 08/13/16 19:42 Nasal Cannula 3.0 32 Intake and Output 08/13/16 08/14/16 19:00 07:00 Intake Total 595 ml 100 ml Balance 595 ml 100 ml Intake Oral 440 ml IV Total 155 ml 100 ml # Voids 1 Laboratory Tests 08/14/16 05:55: White Blood Count 4.7L, Red Blood Count 2.70L, Hemoglobin 8.0L, Hematocrit 26.8L , Mean Corpuscular Volume 99, Mean Corpuscular Hemoglobin 29.5, Mean Corpuscular Hemoglobin Concent 29.8L, Red Cell Distribution Width 15.5H, Platelet Count 126L, Mean Platelet Volume 9.0, Neutrophils (%) (Auto) 53.3, Lymphocytes (%) (Auto) 37.5, Monocytes (%) (Auto) 8.5, Eosinophils (%) (Auto) 0.4, Basophils (%) (Auto) 0.4, Sodium Level 142, Potassium Level 4.2, Chloride Level 104, Carbon Dioxide Level 21, Anion Gap 17H, Blood Urea Nitrogen 52H, Creatinine 5.5H, Estimat Glomerular Filtration Rate , Glucose Level 95, Calcium Level 6.7L, Magnesium Level 1.5L, Troponin I < 0.30, Pro-B-Type Natriuretic Peptide 12875Z, Triglycerides Level 100, Cholesterol Level 99, LDL Cholesterol 38L, HDL Cholesterol 41, Cholesterol/HDL Ratio 2.4L, Thyroid Stimulating Hormone (TSH) 2.730, Free Thyroxine 1.07 Height (Feet): 5 Height (Inches): 7.00 Weight (Pounds): 179 Cardiovascular: normal rate Respiratory/Chest: lungs clear Extremities: moderate edema CHRISTINA DELUNA Aug 14, 2016 16:57
[2016-08-14 20:00] VITALS: BP 141/55
[2016-08-14] MEDS: Atorvastatin 20mg tab ORAL SCH (21:16)
[2016-08-15] VITALS: BP 112/55
[2016-08-15] MEDS: DuoNeb 0.5-3(2.5)mg/3ml neb HHN SCH ×3 (01:10→13:26)
[2016-08-15 04:00] VITALS: BP 146/54
[2016-08-15 08:00] VITALS: BP 126/56
[2016-08-15 08:10] LABS: BASOPHILS % (AUTO) 0.3 % (0.0-2.0); EOSINOPHILS % (AUTO) 1.6 % (0.0-3.0); LYMPHOCYTES % (AUTO) 38.7 % (20.0-45.0); MEAN CORPUSCULAR HEMOGLOBIN 28.9 PG (27.0-31.0); MEAN CORPUSCULAR HGB CONC 29.2 G/DL (32.0-36.0); MEAN CORPUSCULAR VOLUME 99 FL (80-99); MEAN PLATELET VOLUME 8.6 FL (6.5-10.1); MONOCYTES % (AUTO) 7.7 % (1.0-10.0); NEUTROPHILS % (AUTO) 51.7 % (45.0-75.0); PLATELET COUNT 135 K/UL (150-450); RED BLOOD COUNT 2.78 M/UL (4.70-6.10)
[2016-08-15 08:26] LABS: ANION GAP 17 (5-15); CALCIUM 7.3 mg/dL (8.6-10.2); CARBON DIOXIDE 21 mEQ/L (20-30); CHLORIDE 102 mEQ/L (98-107); CREATININE 5.6 mg/dL (0.7-1.2); HEMOLYSIS 5; MAGNESIUM 1.8 mg/dL (1.7-2.5); SODIUM 140 mEQ/L (135-145)
[2016-08-15] MEDS: Flonase Nasal Inhaler 16gm NASAL SCH (09:00)
--- NOTE | 2016-08-15 09:09 | General Progress Note ---
Assessment/Plan Status: stable Assessment/Plan 1. Pneumonia - improved. cont IV cefepime 1 gm q 24 hrs. cont. breathing txt. Will D/c today. Will D/C home with oral ceftin 250 mg bid x 6 days x 7 days. 2. COPD - cont breathing txt. Dr raines is following the patient. 3. CKD - Dr Gonzalez is following the patient. 4. Hyperkalemia - resolved. 5. H/O GI bleeding - stable now. Stool hemocult negative. 6. H/O Gastric Ulcer - stable. 7. Hypomagnesemia - resolved. 8. 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 9. New Onset A Fib - converted with NSR. continue current txt. Subjective Date patient seen: Aug 15, 2016 Time patient seen: 08:30 Constitutional: Reports: weakness HEENT: Reports: no symptoms Cardiovascular: Reports: no symptoms Respiratory: Reports: no symptoms Gastrointestinal/Abdominal: Reports: no symptoms Genitourinary: Reports: no symptoms Neurologic/Psychiatric: Reports: no symptoms Endocrine: Reports: no symptoms Hematologic/Lymphatic: Reports: no symptoms Allergies: Coded Allergies: No Known Allergies (Unverified , 04/12/12) Subjective Pt's coughing has improved. Afebrile. He is in sinus rhythm. No sob or chest pain. no Nausea or vomiting. Objective Last 24 Hour Vital Signs Date Time Temp Pulse Resp B/P Pulse Ox O2 Delivery O2 Flow Rate FiO2 08/15/16 08:00 97.7 62 16 126/56 95 Room Air 08/15/16 06:19 62 146/54 08/15/16 04:00 97.9 64 20 146/54 90 Nasal Cannula 2.0 08/15/16 04:00 62 08/15/16 01:16 61 21 97 Nasal Cannula 4.0 36 08/15/16 01:10 36 08/15/16 01:10 61 22 93 Nasal Cannula 4.0 36 08/15/16 00:00 100.2 74 18 112/55 97 Room Air 08/15/16 00:00 66 08/14/16 22:00 58 141/55 08/14/16 21:16 58 141/55 08/14/16 20:34 58 20 98 Nasal Cannula 4.0 36 08/14/16 20:28 95 Nasal Cannula 4.0 36 08/14/16 20:28 56 22 95 Nasal Cannula 4.0 36 08/14/16 20:28 36 08/14/16 20:00 61 08/14/16 20:00 98.1 60 20 141/55 93 Nasal Cannula 2.0 08/14/16 18:28 Nasal Cannula 4.0 36 08/14/16 16:00 97.9 60 22 139/52 98 Nasal Cannula 2.0 08/14/16 16:00 61 08/14/16 14:17 70 136/59 08/14/16 12:35 76 20 97 Nasal Cannula 2.0 28 08/14/16 12:30 68 20 90 Nasal Cannula 4.0 36 08/14/16 12:30 36 08/14/16 12:00 98.0 72 24 136/59 93 Nasal Cannula 3.0 Intake and Output 08/14/16 08/15/16 19:00 07:00 Intake Total 250 ml 320 ml Balance 250 ml 320 ml Intake Oral 150 ml 220 ml IV Total 100 ml 100 ml Laboratory Tests 08/15/16 06:30: White Blood Count 5.0, Red Blood Count 2.78L, Hemoglobin 8.0L, Hematocrit 27.5L , Mean Corpuscular Volume 99, Mean Corpuscular Hemoglobin 28.9, Mean Corpuscular Hemoglobin Concent 29.2L, Red Cell Distribution Width 15.0H, Platelet Count 135L, Mean Platelet Volume 8.6, Neutrophils (%) (Auto) 51.7, Lymphocytes (%) (Auto) 38.7, Monocytes (%) (Auto) 7.7, Eosinophils (%) (Auto) 1.6, Basophils (%) (Auto) 0.3, Sodium Level 140, Potassium Level 4.0, Chloride Level 102, Carbon Dioxide Level 21, Anion Gap 17H, Blood Urea Nitrogen 52H, Creatinine 5.6H, Estimat Glomerular Filtration Rate , Glucose Level 96, Calcium Level 7.3L, Magnesium Level 1.8 Height (Feet): 5 Height (Inches): 7.00 Weight (Pounds): 179 General Appearance: no apparent distress, alert Neck: non-tender, normal alignment, supple Cardiovascular: normal peripheral pulses, normal rate, regular rhythm Respiratory/Chest: chest wall non-tender, lungs clear, normal breath sounds, no respiratory distress Abdomen: non tender, soft, no organomegaly Extremities: normal range of motion, non-tender Edema: no edema noted Arm (L), no edema noted Arm (R), no edema noted Leg (L), no edema noted Leg (R), no edema noted Pedal (L), no edema noted Pedal (R), no edema noted Generalized Neurologic: no motor/sensory deficits, alert, oriented x 3, responsive Skin: warm/dry Lymphatic: normal anterior cervical (L), normal anterior cervical (R), normal axillary (L), normal axillary (R), normal inguinal (L), normal inguinal (R), normal other, normal posterior cervical (L), normal posterior cervical (R), normal submandibular (L), normal submandibular (R), normal supraclavicular (L), normal supraclavicular (R) LULU SHERMAN Aug 15, 2016 09:09
[2016-08-15] MEDS: Metoprolol 25mg tab ORAL SCH (09:10)
[2016-08-15] MEDS: Tums 500mg ORAL SCH ×2 (09:10→13:09)
[2016-08-15] MEDS: Theophylline ER 100mg ORAL SCH (09:10)
[2016-08-15] MEDS: Calcitriol 0.5mcg Cap ORAL SCH (09:10)
[2016-08-15 12:00] VITALS: BP 130/66
--- NOTE | 2016-08-15 12:06 | Nephrology Progress Note ---
Assessment/Plan Problem List: (1) CKD (chronic kidney disease) Assessment: no change (2) Hypocalcemia (3) Anemia Assessment: with iron deficiency (4) Hypomagnesemia Plan IV Iron Calcium and Vit D switch to po lasix follow labs Ok to DC Subjective Subjective better Objective Objective Last 24 Hour Vital Signs Date Time Temp Pulse Resp B/P Pulse Ox O2 Delivery O2 Flow Rate FiO2 08/15/16 09:10 62 126/56 08/15/16 08:00 97.7 62 16 126/56 95 Room Air 08/15/16 08:00 63 08/15/16 06:19 62 146/54 08/15/16 04:00 97.9 64 20 146/54 90 Nasal Cannula 2.0 08/15/16 04:00 62 08/15/16 01:16 61 21 97 Nasal Cannula 4.0 36 08/15/16 01:10 36 08/15/16 01:10 61 22 93 Nasal Cannula 4.0 36 08/15/16 00:00 100.2 74 18 112/55 97 Room Air 08/15/16 00:00 66 08/14/16 22:00 58 141/55 08/14/16 21:16 58 141/55 08/14/16 20:34 58 20 98 Nasal Cannula 4.0 36 08/14/16 20:28 95 Nasal Cannula 4.0 36 08/14/16 20:28 56 22 95 Nasal Cannula 4.0 36 08/14/16 20:28 36 08/14/16 20:00 61 08/14/16 20:00 98.1 60 20 141/55 93 Nasal Cannula 2.0 08/14/16 18:28 Nasal Cannula 4.0 36 08/14/16 16:00 97.9 60 22 139/52 98 Nasal Cannula 2.0 08/14/16 16:00 61 08/14/16 14:17 70 136/59 08/14/16 12:35 76 20 97 Nasal Cannula 2.0 28 08/14/16 12:30 68 20 90 Nasal Cannula 4.0 36 08/14/16 12:30 36 Intake and Output 08/14/16 08/15/16 19:00 07:00 Intake Total 250 ml 320 ml Balance 250 ml 320 ml Intake Oral 150 ml 220 ml IV Total 100 ml 100 ml Laboratory Tests 08/15/16 06:30: White Blood Count 5.0, Red Blood Count 2.78L, Hemoglobin 8.0L, Hematocrit 27.5L , Mean Corpuscular Volume 99, Mean Corpuscular Hemoglobin 28.9, Mean Corpuscular Hemoglobin Concent 29.2L, Red Cell Distribution Width 15.0H, Platelet Count 135L, Mean Platelet Volume 8.6, Neutrophils (%) (Auto) 51.7, Lymphocytes (%) (Auto) 38.7, Monocytes (%) (Auto) 7.7, Eosinophils (%) (Auto) 1.6, Basophils (%) (Auto) 0.3, Sodium Level 140, Potassium Level 4.0, Chloride Level 102, Carbon Dioxide Level 21, Anion Gap 17H, Blood Urea Nitrogen 52H, Creatinine 5.6H, Estimat Glomerular Filtration Rate , Glucose Level 96, Calcium Level 7.3L, Magnesium Level 1.8 Height (Feet): 5 Height (Inches): 7.00 Weight (Pounds): 179 Cardiovascular: normal rate Respiratory/Chest: rhonchi - bilaterally Extremities: trace edema CHRISTINA DELUNA Aug 15, 2016 12:06
--- NOTE | 2016-08-15 13:21 | Pulmonology Progress Note ---
Assessment/Plan Problems: (1) Pneumonia (2) COPD exacerbation (3) Hx of Clostridium difficile infection (4) Anemia Assessment/Plan improving respiratory treatment check sputum, negative cdiff negative diuretics aspiration precaution check electroltyes dc home or rehab. Subjective ROS Limited/Unobtainable: No Interval Events: d/w , they have second thoughts about Dialysis Constitutional: Reports: no symptoms HEENT: Repors: no symptoms Allergies: Coded Allergies: No Known Allergies (Unverified , 04/12/12) Objective Last 24 Hour Vital Signs Date Time Temp Pulse Resp B/P Pulse Ox O2 Delivery O2 Flow Rate FiO2 08/15/16 13:09 85 130/66 08/15/16 12:00 98.1 85 18 130/66 95 08/15/16 09:10 62 126/56 08/15/16 08:00 97.7 62 16 126/56 95 Room Air 08/15/16 08:00 63 08/15/16 06:19 62 146/54 08/15/16 04:00 97.9 64 20 146/54 90 Nasal Cannula 2.0 08/15/16 04:00 62 08/15/16 01:16 61 21 97 Nasal Cannula 4.0 36 08/15/16 01:10 36 08/15/16 01:10 61 22 93 Nasal Cannula 4.0 36 08/15/16 00:00 100.2 74 18 112/55 97 Room Air 08/15/16 00:00 66 08/14/16 22:00 58 141/55 08/14/16 21:16 58 141/55 08/14/16 20:34 58 20 98 Nasal Cannula 4.0 36 08/14/16 20:28 95 Nasal Cannula 4.0 36 08/14/16 20:28 56 22 95 Nasal Cannula 4.0 36 08/14/16 20:28 36 08/14/16 20:00 61 08/14/16 20:00 98.1 60 20 141/55 93 Nasal Cannula 2.0 08/14/16 18:28 Nasal Cannula 4.0 36 08/14/16 16:00 97.9 60 22 139/52 98 Nasal Cannula 2.0 08/14/16 16:00 61 08/14/16 14:17 70 136/59 Intake and Output 08/14/16 08/15/16 19:00 07:00 Intake Total 250 ml 320 ml Balance 250 ml 320 ml Intake Oral 150 ml 220 ml IV Total 100 ml 100 ml General Appearance: WD/WN HEENT: normocephalic, atraumatic Respiratory/Chest: chest wall non-tender Cardiovascular: normal peripheral pulses, normal rate Abdomen: normal bowel sounds, soft, non tender Genitourinary: normal external genitalia Skin: no rash 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, normal mood/affect Musculoskeletal: normal muscle bulk Laboratory Tests 08/15/16 06:30: White Blood Count 5.0, Red Blood Count 2.78L, Hemoglobin 8.0L, Hematocrit 27.5L , Mean Corpuscular Volume 99, Mean Corpuscular Hemoglobin 28.9, Mean Corpuscular Hemoglobin Concent 29.2L, Red Cell Distribution Width 15.0H, Platelet Count 135L, Mean Platelet Volume 8.6, Neutrophils (%) (Auto) 51.7, Lymphocytes (%) (Auto) 38.7, Monocytes (%) (Auto) 7.7, Eosinophils (%) (Auto) 1.6, Basophils (%) (Auto) 0.3, Sodium Level 140, Potassium Level 4.0, Chloride Level 102, Carbon Dioxide Level 21, Anion Gap 17H, Blood Urea Nitrogen 52H, Creatinine 5.6H, Estimat Glomerular Filtration Rate , Glucose Level 96, Calcium Level 7.3L, Magnesium Level 1.8 Current Medications Medications (Trade) Dose Ordered Sig/Bereket Route PRN Reason Start Time Stop Time Status Last Admin Dose Admin Albuterol/ Ipratropium (DuoNeb 0.5-3(2.5)mg/3ml) 3 ml Q6HRT HHN 08/11/16 19:00 08/16/16 18:59 08/15/16 07:31 Atorvastatin Calcium (Lipitor) 20 mg BEDTIME ORAL 08/11/16 21:00 09/10/16 20:59 08/14/16 21:16 Bacitracin/ Polymyxin B Sulfate (Polysporin Oint) 1 applic BIDPRN PRN TOPIC for itchiness 08/11/16 15:00 09/10/16 14:59 Calcitriol (Rocaltrol) 0.5 mcg DAILY ORAL 08/12/16 09:00 09/11/16 08:59 08/15/16 09:10 Calcium Carbonate (Tums) 500 mg THREE TIMES A DAY ORAL 08/12/16 18:00 09/11/16 17:59 08/15/16 13:09 Cefepime HCl/ Dextrose (Maxipime/D5W 50ml) 50 ml @ 100 mls/hr Q24H IVPB 08/12/16 21:00 08/19/16 20:59 08/14/16 21:16 Clonidine HCl (Catapres) 0.1 mg EVERY 8 HOURS PRN ORAL For High Blood Pressure 08/11/16 10:45 09/10/16 10:44 Diltiazem HCl (Cardizem) 10 mg Q1HR PRN IV if HR >100 08/13/16 02:30 09/12/16 02:29 08/13/16 04:06 Diltiazem HCl (Cardizem) 60 mg EVERY 8 HOURS ORAL 08/13/16 06:00 09/12/16 05:59 08/15/16 13:09 Epoetin Yosi (Procrit (for ESRD on dialysis)) 5,000 units MON-MON-MON SUBQ 08/12/16 21:00 09/11/16 20:59 08/12/16 21:39 Ferrous Sulfate (Feosol) 325 mg THREE TIMES A DAY ORAL 08/14/16 18:00 09/13/16 17:59 08/15/16 13:09 Flecainide Acetate (Tambocor) 50 mg Q12HR ORAL 08/13/16 21:00 09/12/16 20:59 08/15/16 09:10 Fluticasone Propionate (Flonase) 1 spray TWICE A DAY NASAL 08/11/16 18:00 09/10/16 17:59 08/14/16 08:53 Furosemide (Lasix) 40 mg DAILY ORAL 08/16/16 09:00 09/15/16 08:59 Metoprolol Tartrate (Lopressor) 25 mg EVERY 12 HOURS ORAL 08/11/16 21:00 09/10/16 20:59 08/15/16 09:10 Pantoprazole (Protonix) 40 mg EVERY 12 HOURS ORAL 08/11/16 21:00 09/10/16 20:59 08/15/16 09:10 Theophylline 100 mg 100 mg EVERY 12 HOURS ORAL 08/11/16 21:00 09/10/16 20:59 08/15/16 09:10 MAURY CONTI Aug 15, 2016 13:21
[2016-08-15] MEDS ORDERED: Cefepime 1gm vial ONE (15:11)
[2016-08-15] MEDS ORDERED: FLECAINIDE ACE100 MG ORAL (15:34)
[2016-08-15] MEDS ORDERED: FEOSOL325 MG ORAL (15:34)
[2016-08-15] MEDS ORDERED: CLONIDINE0.1 MG ORAL (15:34)
[2016-08-15] MEDS ORDERED: TUMS500 MG ORAL (15:34)
[2016-08-15] MEDS ORDERED: CARDIZEM60 MG ORAL (15:34)
[2016-08-15] MEDS ORDERED: CEFTIN250 MG/5 M PO (15:34)
[2016-08-15] MEDS ORDERED: POLYSPORIN O1 APPLI1 TOPIC (15:34)
[2016-08-15] MEDS ORDERED: FLONASE1 SPRAYS NASAL (15:34)
[2016-08-15] MEDS ORDERED: THEOPHYLLINE A100 MG ORAL (15:34)
[2016-08-15 16:00] VITALS: BP 124/60
[2016-08-15] MEDS ORDERED: Epogen (for ESRD on dialysis) SUBQ SCH (17:00)
[2016-08-15] MEDS ORDERED: Tubing IV Secondary IV ONE (17:40)
--- NOTE | 2016-08-16 02:27 | Discharge Summary ---
DATE OF ADMISSION: 08/11/2016 DATE OF DISCHARGE: 08/15/2016 HOSPITAL COURSE: This is an 86-year-old [place] Citizen male with a history of coronary artery disease, CHF, and chronic kidney disease, who was brought in for shortness of breath and a recent fall at home. The patient noticed to have congestive heart failure and was treated for pneumonia as well. The patient received IV Lasix, IV antibiotics, and cefepime for pneumonia. He responded to treatment well. He also was treated for COPD with theophylline and breathing treatment. While in the hospital, the patient developed an episode of atrial fibrillation with rapid ventricular rate. The patient was started on diltiazem 60 mg t.i.d. along with metoprolol titrate 25 mg b.i.d. that he was taking before. The patient also was seen by corn grinder, Dr. Bailey and was started on flecainide acetate 50 mg q.12 hours for rhythm control. The patient converted back to sinus rhythm with above therapy. He also had severe anemia due to iron deficiency anemia and chronic kidney disease. He was started on IV iron and Epogen and will be followed up as outpatient with his pest control service representative. DISCHARGE DIAGNOSES: Include, 1. Pneumonia. 2. Chronic obstructive pulmonary disease. 3. Chronic kidney disease. 4. Anemia of chronic disease and iron deficiency anemia. 5. Hyperkalemia, resolved. 6. Hypomagnesemia, resolved. 7. New onset atrial fibrillation. 8. History of gastric ulcer. 9. History of gastrointestinal bleed. Stool Hemoccult negative. DISCHARGE MEDICATIONS: Include, 1. Calcium carbonate 500 mg t.i.d. 2. Ceftin 250 mg b.i.d. for six days. 3. Clonidine 0.1 mg every 8 hours p.r.n. for systolic blood pressure greater than 160. 4. Cardizem 60 mg every 8 hours. 5. Ferrous sulfate 325 mg one t.i.d. 6. Flecainide acetate 50 mg oral q.12 hours . 7. Nasonex nasal spray, one spray per nostril b.i.d. 8. Theophylline 100 mg every 12 hours. 9. Bacitracin ointment b.i.d. 10. Calcitriol 0.25 mcg capsule 0.5 mcg daily. 11. Metoprolol titrate 25 mg q.12 hours. 12. Protonix 40 mg q.12 hours. 13. Crestor 10 mg at nightly. DISPOSITION: The patient will be sent back home and will be followed up in one week. He also needs to follow up with his pest control service representative within the next one to two days for possible treatment with Epogen as outpatient. The patient will also need to follow up with his corn grinder, Dr. Fink for further care and treatment of atrial fibrillation as outpatient. Bacilio Steve M.D. DR: Gilson JOB#: [id number] CC: SYLVESTER
[2016-08-16 08:14] LABS: OSMOLALITY SERUM 306 mOsm/kg (278-305)
[2016-08-16] MEDS ORDERED: Furosemide 40mg tab ORAL SCH (09:00)
--- NOTE | 2016-08-16 18:02 | Cardiology Report ---
APPROVED REPORT EKG Measurement Heart [id number] Normal sinus rhythm Right bundle branch block Abnormal ECG
--- NOTE | 2016-08-16 23:25 | Diagnostic Imaging Report ---
APPROVED REPORT CPT Code: 69384 Present Symptoms Lower Extremity Pain: Bilateral BILATERAL: Imaging reveals a patent deep venous system bilaterally. There is no evidence of thrombus within the femoral, popliteal or tibial segments. The greater saphenous veins are also within normal limits. Doppler indicates normal spontaneous flow within these segments.
--- NOTE | 2016-08-23 11:55 | Cardiology Report ---
APPROVED REPORT EXAM: Two-dimensional and M-mode echocardiogram with Doppler and color Doppler. M-Mode DIMENSIONS IVSd1.1 (0.7-1.1cm)Left Atrium (MM)4.0 (1.6-4.0cm) LVDd5.2 (3.5-5.6cm)Aortic Root3.3 (2.0-3.7cm) PWd1.1 (0.7-1.1cm)Aortic Cusp Exc.1.6 (1.5-2.0cm) IVSs2.0 cm LVDs2.8 (2.5-4.0cm) PWs2.1 cm Technically difficult and limited study due to very poor acoustic windows Normal left ventricular chamber size, systolic function and wall motion. Left ventricular ejection fraction estimated to be 65-70%. No left ventricular hypertrophy. Mild Bi-atrial enlargment seen in 2D. Focal aortic valve sclerosis with adequate cusp excursion Mildy thickened mitral valve leaflets with normal excursion. Pulmonic valve not well visualized. Normal tricuspid valve structure. IVC dilated at 2.6cm with physiologic collapse. A color flow and spectral Doppler study was performed and revealed: No aortic regurgitation. Trace mitral regurgitation. Mitral inflow velocities indicates reduced left ventricular relaxation diastolic dysfunction. Grade one. Trace tricuspid regurgitation. Tricuspid systolic velocities suggests peak right ventricular systolic pressure of 17 -22mmHg. RAP 10-15 mmHg. No pulmonic regurgitation present.
--- NOTE | 2016-08-23 11:57 | Diagnostic Imaging Report ---
Indication: Dyspnea Comparison: 08/11/16 2 views of the chest obtained. Accounting for differences in technique there is probably little to no change. There is some prominence of the central pulmonary vascularity as well as the interstitium involving the perihilar and basilar aspects of the lungs. The heart is enlarged. Bones are osteopenic. Impression: Mild chronic congestive heart failure may be present. Please correlate clinically.
== END 2016-08-15 17:41 | disposition home or self-care (01) | DRG 194 ==
LOC: EDBD 07:29 → EMR 07:50 → EDBEDREQ 09:06 → 2E 09:14 → EDBEDREQ 09:32
DX: J18.9 Pneumonia, unspecified organism (principal); J44.1 Chronic obstructive pulmonary disease with (acute) exacerbation; N19 Unspecified kidney failure; E87.5 Hyperkalemia; E83.42 Hypomagnesemia; I12.9 Hypertensive chronic kidney disease with stage 1 through stage 4 chronic kidney disease, or unspecified chronic kidney disease; D50.9 Iron deficiency anemia, unspecified; F10.21 Alcohol dependence, in remission; I48.91 Unspecified atrial fibrillation; N18.9 Chronic kidney disease, unspecified; D63.8 Anemia in other chronic diseases classified elsewhere; F17.200 Nicotine dependence, unspecified, uncomplicated; E83.51 Hypocalcemia; E78.5 Hyperlipidemia, unspecified; Z91.81 History of falling
CPT/HCPCS: 36415; 71010; 71020; 76775; 80048; 80053; 80061; 81001; 81003; 82270; 82330; 82378; 82436; 82533; 82550; 82553; 82607; 82746; 82962; 83540; 83550; 83605; 83615; 83735; 83880; 83930; 83935; 84100; 84133; 84300; 84439; 84443; 84481; 84484; 84550; 85007; 85025; 85044; 85060; 85610; 85651; 85730; 86850; 86900; 86901; 87040; 87070; 87081; 87205; 87493; 89050; 93005; 93306; 93970; 94640; 94664; 94760; J7620

== ENCOUNTER 2020-04-22 13:07 | Emergency (ER) | payer MEDICARE, OTHER ==
[~2020-04-22] VITALS: Ht 162.6 cm; Wt 77.1 kg
[~2020-04-22 13:07] MED LIST changes: +AMBIEN10 M1 ORAL; +CARDIZEM60 MG ORAL; +CEFTIN250 MG/5 M PO; +CLONIDINE0.1 MG ORAL; +FEOSOL325 MG ORAL; +FLECAINIDE ACE100 MG ORAL; +FLONASE1 SPRAYS NASAL; +POLYSPORIN O1 APPLI1 TOPIC; +THEOPHYLLINE A100 MG ORAL; +TUMS500 MG ORAL
[2020-04-22 13:24] VITALS: BP 147/54
[2020-04-22] MEDS ORDERED: Lidocaine 2% MPF 5ml Vial INJ ONE (14:15)
--- NOTE | 2020-04-22 14:17 | Diagnostic Imaging Report ---
Indication: Hand pain status post injury. Technique: 4 views of the left hand Comparison: None Findings: Bones are demineralized. There is an acute fracture involving the midshaft of the fourth proximal phalanx. Fracture is minimally comminuted, mildly displaced and angulated. There is overlying soft tissue swelling. There is degenerative changes involving the interphalangeal joints with a "gull-wing" appearance. There is no radiopaque foreign body. IMPRESSION: * Acute fracture of the fourth proximal phalanx. 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 Additional etiologies including psoriatic or rheumatoid arthritis can also be considered. Please correlate clinically. * Osteopenia.
--- NOTE | 2020-04-22 14:55 | Emergency Room Report ---
History of Present Illness General Chief Complaint: Upper Extremity Injury Source: Medical Record Present Illness HPI 89 YO male presents to the ED c/o deformity, swelling and bruising to the left hand particularly the left ring finger status post accidentally slamming his hand in the trunk of his car yesterday. Patient reports he does receive dialysis and his shunt is on the affected extremity. Patient reports he went to dialysis this morning. He is requesting Tylenol. He denies paresthesias. He denies open wounds/bleeding. Palpation or movement of the right ring finger exacerbates his pain. Allergies: Coded Allergies: No Known Allergies (Unverified , 04/12/12) COVID-19 Screening Contact w/high risk pt: No Experienced COVID-19 symptoms?: No COVID-19 Testing performed [employer] ARCHITECT: No Patient History Past Medical History: see triage record Past Surgical History: none Pertinent Family History: none Reviewed Nursing Documentation: PMH: Agreed; PSxH: Agreed Nursing Documentation-PMH Past Medical History: No History, Except For Hx Cardiac Problems: Yes Hx Hypertension: Yes Hx Pacemaker: No Hx Asthma: No Hx COPD: Yes Hx Diabetes: No Hx Cancer: No Hx Gastrointestinal Problems: Yes Hx Dialysis: No Hx Neurological Problems: No Hx Cerebrovascular Accident: No Hx Seizures: No Review of Systems All Other Systems: negative except mentioned in HPI Physical Exam Vital Signs Date Time Temp Pulse Resp B/P (MAP) Pulse Ox O2 Delivery O2 Flow Rate FiO2 04/22/20 13:16 97.5 67 20 147/54 (85) 94 Room Air Sp02 EP Interpretation: reviewed, normal General Appearance: no apparent distress, alert, GCS 15, non-toxic Head: normocephalic, atraumatic Eyes: bilateral eye normal inspection, bilateral eye PERRL ENT: hearing grossly normal, normal voice Neck: full range of motion Respiratory: lungs clear, normal breath sounds, speaking full sentences Cardiovascular #1: regular rate, rhythm, normal capillary refill Musculoskeletal: normal range of motion, gait/station normal, swelling - LEft hand distally and extending to the proximal phalanx area of fingers 3-5. NVI in all digits, bruising noted dorsally and on the volar aspect. Neurologic: alert, motor strength/tone normal, oriented x3, sensory intact, responsive, speech normal Psychiatric: judgement/insight normal Lymphatic: no adenopathy Medical Decision Making PA Attestation Dr. Travis Is my supervising Physician whom patient management has been discussed with. Diagnostic Impression: Primary Impression: Fracture of finger of left hand Qualified Codes: S62.615A - Displaced fracture of proximal phalanx of left ring finger, initial encounter for closed fracture Additional Impression: Unstable left ring finger fracture- requires orthopedic surgery ER Course 89 YO male presents to the ED c/o deformity, swelling and bruising to the left hand particularly the left ring finger status post accidentally slamming his conklin d in the trunk of his car yesterday. Patient reports he does receive dialysis and his shunt is on the affected extremity. Patient reports he went to dialysis this morning. He is requesting Tylenol. He denies paresthesias. He denies open wounds/bleeding. Palpation or movement of the right ring finger exacerbates his pain. Ddx considered but are not limited to Fracture, dislocation, contusion, Sprain/Strain/Spasm, hematoma, nerve injury, circulatory injury/compromise, just to name a few. Vital signs: are WNL, pt. is afebrile H&PE are most consistent with musculoskeletal injury will perform imaging to r/o fractures/dislocations. ORDERS: - X-ray Left fingers 3 views - displaced 4th digit fracture of the proximal phalanx ED INTERVENTIONS: - Tylenol PO - Fracture reduction and splint is applied. - while I held traction and positioned the finger in anatomical position, a finger splint applied to the left ring finger that extends down the left palm by robotic maintenance technician. Pt. remains neurovascularly intact. - Left arm Sling applied by robotic maintenance technician. Pt. remains neurovascularly intact. I discussed with this patient and reiterated multiple times the severity of his finger fracture and instability which requires urgent orthopedic evaluation and most likely surgery. Patient verbalizes understanding and agreement with treatment plan. He reports he will contact his primary care provider regarding an biochemistry specialist. I discussed with this patient that I will also provide orthopedic urgent care information for in the event that he is unable to obtain referral from his PCP. DISCHARGE: At this time pt. is stable for d/c to home. Will provide printed patient care instructions, and any necessary prescriptions. Care plan and follow up instructions have been discussed with the patient prior to discharge. Last Vital Signs Date Time Temp Pulse Resp B/P (MAP) Pulse Ox O2 Delivery O2 Flow Rate FiO2 04/22/20 14:25 97.5 04/22/20 13:24 20 147/54 94 Room Air 04/22/20 13:16 67 Disposition: HOME, SELF-CARE Condition: Stable Scripts Hydrocodone Bit/Acetaminophen 5-325* (NORCO 5-325 TABLET*) 1 Each Tablet 1 TAB ORAL Q8HR PRN for FOR PAIN, #10 TAB 0 Refills Prov: Ness Newby 04/22/20 Referrals: NOT CHOSEN IPA/MD,REFERRING (PCP) Patient Instructions: Finger Fracture Additional Instructions: Take medications as directed. YOUR FRACTURE IS VERY SERIOUS AND NOT STABLE. THIS REQUIRES ORTHOPEDIC SURGERY. Follow up with an PHARMACY AFFAIRS ASSISTANT WITHIN 3 days, --Please review list of primary care clinics, if you do not already have a primary care provider who can give you an Orthopedic Referral. Return sooner to ED if new symptoms occur, or current symptoms become worse. Do not drink alcohol, drive, or operate heavy machinery while taking [place] as this may cause drowsiness. - Please note that this Emergency Department Report was dictated using [employer] technology software, occasionally this can lead to erroneous entry secondary to interpretation by the dictation equipment. Ness Newby Apr 22, 2020 14:55
[2020-04-22] MEDS ORDERED: NORCO 5-325 TA1 EAC1 ORAL (14:56)
[2020-04-22 15:03] VITALS: BP 137/68
== END 2020-04-22 15:03 | disposition home or self-care (01) ==
LOC: EMR 13:49
DX: S62.615A Displaced fracture of proximal phalanx of left ring finger, initial encounter for closed fracture (principal); M85.842 Other specified disorders of bone density and structure, left hand; W23.0XXA Caught, crushed, jammed, or pinched between moving objects, initial encounter; Y92.9 Unspecified place or not applicable; Z99.2 Dependence on renal dialysis; I10 Essential (primary) hypertension; J44.9 Chronic obstructive pulmonary disease, unspecified
CPT/HCPCS: 99283